=== PATIENT | female | born 1945 | race Caucasian/White ===

== ENCOUNTER 2018-08-11 19:01 | Inpatient (IN) | payer MEDICARE ==
[2018-08-11] MEDS ORDERED: NORMAL SALINE 1000 ML 500 ML IV ONE (19:25)
--- NOTE | 2018-08-11 19:29 | ER Document Report ---
ED General - General Stated Complaint: CONFUSION Time Seen by Provider: 08/11/18 19:10 Notes: Patient is a 72-year-old female that comes emergency department by EMS for chief complaint of altered mental status. EMS reports that patient was "missing " for 2 hours, she left her house and wondered to her children's home, her son called the ambulance. Patient was initially mildly hypotensive with blood pressures in the 90s systolic, this responded to a small fluid bolus and normalized. No fever, vomiting, injury reported. Patient has a history of "bone cancer in her back", hypothyroidism, GERD, hypertension. She is not on chemotherapy or radiation yet, she was supposed to start in over a week in [place] with Dr. Guerin. - Related Data Allergies/Adverse Reactions: No Known Allergies Allergy (Unverified 08/12/18 03:07) Past Medical History - General Information source: Patient - Social History Smoking Status: Never Smoker Drug Abuse: None Lives with: Family Family History: Reviewed & Not Pertinent - Past Medical History Cardiac Medical History: Reports: Hx Hypertension Endocrine Medical History: Reports: Hx Hypothyroidism Malignancy Medical History: Reports: Hx Bone Cancer GI Medical History: Reports: Hx Gastroesophageal Reflux Disease - Immunizations Hx Diphtheria, Pertussis, Tetanus Vaccination: Yes Review of Systems - Review of Systems Constitutional: See HPI EENT: No symptoms reported Cardiovascular: No symptoms reported Respiratory: No symptoms reported Gastrointestinal: No symptoms reported Genitourinary: No symptoms reported Female Genitourinary: No symptoms reported Musculoskeletal: No symptoms reported Skin: No symptoms reported Hematologic/Lymphatic: No symptoms reported Neurological/Psychological: See HPI Physical Exam - Vital signs Vitals: Pulse Resp BP Pulse Ox 103 H 22 H 122/75 95 08/11/18 22:54 08/11/18 22:54 08/11/18 22:54 08/11/18 22:54 - Notes Notes: GENERAL: Alert, responsive, no distress. HEAD: Normocephalic, atraumatic. EYES: Pupils equal, round, and reactive to light. Extraocular movements intact. ENT: Oral mucosa moist, tongue midline. NECK: Full range of motion. Supple. Trachea midline. LUNGS: Clear to auscultation bilaterally, no wheezes, rales, or rhonchi. No respiratory distress. HEART: Regular rate and rhythm. No murmur ABDOMEN: Soft, non-tender. Non-distended. Bowel sounds present in all 4 quadrants. EXTREMITIES: Moves all 4 extremities spontaneously. No edema, normal radial and dorsalis pedis pulses bilaterally. No cyanosis. BACK: no cervical, thoracic, lumbar midline tenderness. No saddle anesthesia, normal distal neurovascular exam. NEUROLOGICAL: Alert, responsive, not oriented to place or time. Cranial nerves II through XII generally intact. PSYCH: Occasionally irritable. SKIN: Warm, dry, normal turgor. No rashes or lesions noted. Course - Re-evaluation Re-evalutation: Patient follows all directions and cooperates with a normal neurological exam except she is not oriented to place and events. She is able to tell me her name , and identify her . She is unable to tell me the year or the president. She was recently started on dexamethasone within the past week for poor appetite, she is on OxyContin 10 mg twice a day and Percocet every 6 hours as needed for pain, states he does not know she is taking this or over- taking this. Has been actually is very difficult to obtain clear history from, he is confused about details and unable to give me any specifics about the patient, he thinks that she has been confused over the past few days but is not sure. I spoke with the patient's son. He states that since yesterday his mother has been acting bizarre and making bizarre statements, she has been very confused, he states this is completely abnormal for her she is normally completely alert and oriented with no history of dementia. He does confirm that she was recently started on dexamethasone and pain medication although he does not think that she was taking her pain medication. He also states that he actually found her inside of her coming over to his house, he found her walking barefoot in the middle of the road in her nightgown. She has never had bizarre behavior like this in the past. 08/11/18 23:20 There has been a large delay and CAT scan and chest x-ray because [employer] system went down. Still pending reports. Reports obtained, chest x-ray showing 5 x 4 cm mass in the right hilum worrisome for tumor, CAT scan of the head showing no acute findings, does show mass in the sella and suprasellar cistern which is thought to be possible pituitary adenoma or craniopharyngioma. There is no edema, there is no brain mass causing shift, unlikely the cause of her altered mental status. Discussed with Dr. Sanford. 08/12/18 I do suspect that patient's altered mental status is secondary to medications although this is not certain. I did discuss with him potential admission before he left. Will discuss with Dr. Gold, internal medicine. Discussed with Dr. Gold, patient will be admitted to medical floor full admission. - Vital Signs Vital signs: Temp Pulse Resp BP Pulse Ox 102 H 31 H 111/64 92 08/11/18 23:30 08/12/18 03:31 08/12/18 03:31 08/12/18 03:31 - Laboratory Result Diagrams: 08/11/18 20:11 08/11/18 20:11 Laboratory results interpreted by me: 08/11/18 08/11/18 08/11/18 20:11 20:11 20:11 RDW 16.1 H Sodium 136.3 L Total Bilirubin 1.4 H Direct Bilirubin 0.5 H Free T4 0.69 L Free T3 pg/mL Salicylates < 1.0 L Acetaminophen < 10 L 08/11/18 20:11 RDW Sodium Total Bilirubin Direct Bilirubin Free T4 Free T3 pg/mL 2.10 L Salicylates Acetaminophen Discharge - Discharge Clinical Impression: Altered mental status Qualifiers: Altered mental status type: unspecified Qualified Code(s): R41.82 - Altered mental status, unspecified Condition: Stable Disposition: ADMITTED INPATIENT Admitting Provider: Hospitalist Unit Admitted: Medical Floor
[2018-08-11 20:26] LABS: ABSOLUTE BASOPHILS # (AUTO) 0.1 10^3/uL (0.0-0.2); ABSOLUTE EOSINOPHILS # (AUTO) 0.1 10^3/uL (0.0-0.6); ABSOLUTE LYMPHOCYTES (AUTO) 1.5 10^3/uL (0.5-4.7); ABSOLUTE MONOCYTES (AUTO) 0.7 10^3/uL (0.1-1.4); ABSOLUTE NEUT (AUTO) 7.5 10^3/uL (1.7-8.2); BASOPHILS % (AUTO) 0.6 % (0-2); EOSINOPHILS % (AUTO) 1.1 % (0-6); HEMATOCRIT 39.7 % (36.0-47.0); HEMOGLOBIN 13.7 g/dL (12.0-15.5); LYMPHOCYTES % (AUTO) 14.7 % (13-45); MEAN CORPUSCULAR HEMOGLOBIN 30.4 pg (27.0-33.4); MEAN CORPUSCULAR HGB CONC 34.4 g/dL (32.0-36.0); MEAN CORPUSCULAR VOLUME 88 fl (80-97); MONOCYTES % (AUTO) 7.4 % (3-13); PLATELET COUNT 257 10^3/uL (150-450); RED CELL DISTRIBUTION WIDTH 16.1 % (11.5-14.0); SEGMENTED NEUTROPHILS % (AUTO) 76.2 % (42-78); TOTAL CELLS COUNTED % (AUTO) 100 %; WHITE BLOOD COUNT 9.9 10^3/uL (4.0-10.5)
[2018-08-11 20:43] LABS: ALANINE AMINOTRANSFERASE 18 U/L (9-52); ALBUMIN 3.6 g/dL (3.5-5.0); ALKALINE PHOSPHATASE 68 U/L (38-126); ANION GAP 9 (5-19); ASPARTATE AMINO TRANSFERASE 34 U/L (14-36); BILIRUBIN,DIRECT 0.5 mg/dL (0.0-0.4); BILIRUBIN,TOTAL 1.4 mg/dL (0.2-1.3); BLOOD UREA NITROGEN 9 mg/dL (7-20); CARBON DIOXIDE 28 mmol/L (22-30); CHLORIDE 99 mmol/L (98-107); GLUCOSE 89 mg/dL (75-110); POTASSIUM 3.9 mmol/L (3.6-5.0); SODIUM 136.3 mmol/L (137-145); TOTAL PROTEIN 6.6 g/dL (6.3-8.2)
[2018-08-11 20:46] LABS: ACETAMINOPHEN < 10 ug/mL (10-30); ALCOHOL < 10 mg/dL (NONE DETECTED); SALICYLATE < 1.0 mg/dL (2.0-20.0)
[2018-08-11 20:59] LABS: FREE T4 (FREE THYROXINE) 0.69 ng/dL (0.78-2.19)
[2018-08-11 21:47] LABS: THYROID STIMULATING HORMONE 1.33 uIU/mL (0.47-4.68)
[2018-08-11 22:10] LABS: APPEARANCE,URINE CLEAR; BILIRUBIN,URINE NEGATIVE (NEGATIVE); COLOR,URINE YELLOW; GLUCOSE, URINE NEGATIVE (NEGATIVE); KETONES,URINE NEGATIVE (NEGATIVE); NITRITE,URINE NEGATIVE (NEGATIVE); PROTEIN,URINE NEGATIVE (NEGATIVE); URINE SPECIFIC GRAVITY 1.003; UROBILINOGEN,URINE NEGATIVE mg/dL (<2.0)
[2018-08-11 22:11] LABS: LEUKOCYTE ESTERASE,URINE NEGATIVE (NEGATIVE)
[2018-08-11 23:01] LABS: URINE AMPHETAMINES SCREEN NEGATIVE; URINE BARBITURATES SCREEN NEGATIVE; URINE BENZODIAZEPINES SCREEN NEGATIVE; URINE COCAINE SCREEN NEGATIVE; URINE MARIJUANA (THC) SCREEN NEGATIVE; URINE METHADONE SCREEN NEGATIVE; URINE PHENCYCLIDINE SCREEN NEGATIVE
[2018-08-12] MEDS ORDERED: MAG HYDROX/AL HYDROX/SIMETH SUSP 30 ML UDCUP PO PRN (02:46)
[2018-08-12] MEDS ORDERED: IPRATROPIUM/ALBUTEROL 0.5-2.5 MG/3 ML AMPUL NEB PRN (02:46)
[2018-08-12] MEDS ORDERED: MAGNESIUM HYDROXIDE SUSP 30 ML UDCUP PO PRN (02:46)
--- NOTE | 2018-08-12 05:18 | EKG REPORT ---
SEVERITY:- ABNORMAL ECG - SINUS TACHYCARDIA NONSPECIFIC REPOL ABNORMALITY, DIFFUSE LEADS : Confirmed by: Christa Manrique 12-Aug-2018 05:17:34
--- NOTE | 2018-08-12 06:52 | PDOC H&P ---
History of Present Illness Admission Date/PCP: 08/12/18 02:54 Patient complains of: Altered mental status History of Present Illness: EBENEZER HEBERT is a 72 year old female with unclear past medical history obtained by patient who is encephalopathic. 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 She presents via EMS after finds her confused, EMS reports hypo-tension, in the emergency room she has an unremarkable workup without metabolic derangement or significant toxicology. Patient recently started on dexamethasone and narcotics. She is otherwise unable to provide specific history. She is in no acute distress Past Medical History Cardiac Medical History: Reports: Hypertension Endocrine Medical History: Reports: Hypothyroidism Malignancy Medical History: Reports: Bone Cancer GI Medical History: Reports: Gastroesophageal Reflux Disease Past Surgical History Past Surgical History: Reports: None Social History Information Source: Patient Lives with: Family Smoking Status: Never Smoker Frequency of Alcohol Use: None Drugs: None - Advance Directive Resuscitation Status: Full Code Family History Family History: Other - Unobtainable Parental Family History Reviewed: No - Unobtainable Children Family History Reviewed: No - Unobtainable Sibling(s) Family History Reviewed.: No - Unobtainable Medication/Allergy Home Medications: Dexamethasone 0.5 mg PO 08/12/18 Levothyroxine Sodium [Synthroid 50 Mcg Tablet] 50 mcg PO DAILY 08/12/18 Omeprazole 20 mg PO 08/12/18 Oxycodone HCl 10 mg PO 08/12/18 Valsartan 40 mg PO 08/12/18 Allergies/Adverse Reactions: No Known Allergies Allergy (Unverified 08/12/18 03:07) Review of Systems ROS unobtainable: Due to mental status Physical Exam Vital Signs: Temp Pulse Resp BP Pulse Ox 102 H 31 H 111/64 92 08/11/18 23:30 08/12/18 03:31 08/12/18 03:31 08/12/18 03:31 Intake & Output 08/10/18 08/11/18 08/12/18 11:59 11:59 11:59 Weight 81.6 kg General appearance: PRESENT: no acute distress, cooperative, disheveled, mild distress. ABSENT: severe distress Head exam: PRESENT: atraumatic, normocephalic Eye exam: PRESENT: conjunctiva pink, EOMI, PERRLA. ABSENT: scleral icterus Ear exam: PRESENT: normal external ear exam Mouth exam: PRESENT: moist, tongue midline Neck exam: ABSENT: carotid bruit, JVD, lymphadenopathy, thyromegaly Respiratory exam: PRESENT: clear to auscultation kain. ABSENT: rales, rhonchi, wheezes Cardiovascular exam: PRESENT: RRR. ABSENT: diastolic murmur, rubs, systolic murmur Pulses: PRESENT: normal dorsalis pedis pul Vascular exam: PRESENT: normal capillary refill GI/Abdominal exam: PRESENT: normal bowel sounds, soft. ABSENT: distended, guarding, mass, organolmegaly, rebound, tenderness Rectal exam: PRESENT: deferred Extremities exam: PRESENT: full ROM. ABSENT: calf tenderness, clubbing, pedal edema Neurological exam: PRESENT: alert, altered, awake, oriented to person, reflexes normal, CN II-XII grossly intact. ABSENT: oriented to time, oriented to situation Psychiatric exam: PRESENT: agitated, anxious, unusual affect Skin exam: PRESENT: dry, intact, warm. ABSENT: cyanosis, rash Assessment & Plan - Diagnosis (1) Acute encephalopathy Is this a current diagnosis for this admission?: Yes Plan: Possibly steroid psychosis, supportive care, obtain medication reconciliation. (2) History of bone cancer Is this a current diagnosis for this admission?: Yes Plan: Obtain CT head imaging results. - Time Time Spent: 50 to 70 Minutes - Inpatient Certification Medical Necessity: Need Close Monitoring Due to Risk of Patient Decompensation
[2018-08-12] MEDS: HEPARIN SOD (PORCINE) 5,000 UNIT/ML 1 ML SYRINGE SUBCUT SCH ×3 (07:13→21:39)
--- NOTE | 2018-08-12 07:46 | RADIOLOGY REPORT (SQ) ---
EXAM DESCRIPTION: CT HEAD WITHOUT COMPLETED DATE/TIME: 08/11/2018 7:26 pm REASON FOR STUDY: AMS COMPARISON: None. TECHNIQUE: Axial images acquired through the brain without intravenous contrast. Images reviewed wi th bone, brain and subdural windows. Additional sagittal and coronal reconstructions were generated. Images stored on PACS. All CT scanners at this facility use dose modulation, iterative reconstruction, and/or weight based d osing when appropriate to reduce radiation dose to as low as reasonably achievable (ALARA). [facility]: Dose Right [facility]: CareDose [facility]: Dose Right [facility]: Teradose 4D [facility]: AdReady RADIATION DOSE: 53 mGy. LIMITATIONS: None. FINDINGS: There is a 3 cm craniocaudad by 2 cm AP x 2 cm transverse mass filling the sella and supra sellar cistern, abutting the undersurface of the optic chiasm, either a pituitary adenoma or cranioph aryngioma. This is best demonstrated on sagittal reconstruction image 23 VENTRICLES: Normal size and contour. CEREBRUM: No masses. No hemorrhage. No midline shift. No evidence for acute infarction. Normal gra y/white matter differentiation. No areas of low density in the white matter. CEREBELLUM: No masses. No hemorrhage. No alteration of density. No evidence for acute infarction. EXTRAAXIAL SPACES: No fluid collections. No masses. ORBITS AND GLOBE: No intra- or extraconal masses. Normal contour of globe without masses. CALVARIUM: No fracture. Benign calvarium hemangioma right posterior frontal region axial image 28 PARANASAL SINUSES: No fluid or mucosal thickening. SOFT TISSUES: No mass or hematoma. OTHER: No other significant finding. IMPRESSION: No acute findings. Mass in the sella and suprasellar cistern likely the pituitary at ad enoma or craniopharyngioma EVIDENCE OF ACUTE STROKE: NO. COMMENT: Quality ID # [id number]: Final reports with documentation of one or more dose reduction techniques (e.g., Automated exposure control, adjustment of the mA and/or kV according to patient size, use of iterative reconstruction technique) TECHNICAL DOCUMENTATION: JOB ID: [id number] [employer]- All Rights Reserved Reading location - IP/workstation name: [email or web address]
--- NOTE | 2018-08-12 07:46 | RADIOLOGY REPORT (SQ) ---
EXAM DESCRIPTION: CHEST SINGLE VIEW COMPLETED DATE/TIME: 08/11/2018 7:26 pm REASON FOR STUDY: AMS COMPARISON: None. EXAM PARAMETERS: NUMBER OF VIEWS: One view. TECHNIQUE: Single frontal radiographic view of the chest acquired. RADIATION DOSE: NA LIMITATIONS: None. FINDINGS: LUNGS AND PLEURA: 5 x 4 cm mass in the right middle lobe/lower hilum worrisome for primary tumor. Lungs are hyperinflated and hyperlucent otherwise from obstructive disease. No pleural effusion. No pneumothorax. MEDIASTINUM AND HILAR STRUCTURES: No masses. Contour normal. HEART AND VASCULAR STRUCTURES: Heart normal in size. Normal vasculature. BONES: No acute findings. HARDWARE: None in the chest. OTHER: No other significant finding. IMPRESSION: 5 x 4 cm mass in the right lower hilum worrisome for primary tumor TECHNICAL DOCUMENTATION: JOB ID: [id number] [employer]- All Rights Reserved Reading location - IP/workstation name: [email or web address]
[2018-08-12] MEDS: OXYCODONE-ACETAMINOPHEN 5-325 MG TABLET PO PRN ×2 (12:12→22:40)
[2018-08-13] MEDS: HEPARIN SOD (PORCINE) 5,000 UNIT/ML 1 ML SYRINGE SUBCUT SCH ×3 (05:05→21:44)
[2018-08-13] MEDS: OXYCODONE-ACETAMINOPHEN 5-325 MG TABLET PO PRN ×3 (05:06→18:07)
[2018-08-13 05:37] LABS: ABSOLUTE EOSINOPHILS # (AUTO) 0.2 10^3/uL (0.0-0.6); ABSOLUTE LYMPHOCYTES (AUTO) 1.1 10^3/uL (0.5-4.7); ABSOLUTE MONOCYTES (AUTO) 0.4 10^3/uL (0.1-1.4); ABSOLUTE NEUT (AUTO) 4.3 10^3/uL (1.7-8.2); BASOPHILS % (AUTO) 0.7 % (0-2); EOSINOPHILS % (AUTO) 2.6 % (0-6); HEMATOCRIT 33.9 % (36.0-47.0); HEMOGLOBIN 11.9 g/dL (12.0-15.5); LYMPHOCYTES % (AUTO) 18.9 % (13-45); MEAN CORPUSCULAR HEMOGLOBIN 30.5 pg (27.0-33.4); MEAN CORPUSCULAR HGB CONC 35.3 g/dL (32.0-36.0); MEAN CORPUSCULAR VOLUME 86 fl (80-97); MONOCYTES % (AUTO) 7.1 % (3-13); PLATELET COUNT 224 10^3/uL (150-450); RED BLOOD COUNT 3.92 10^6/uL (3.72-5.28); RED CELL DISTRIBUTION WIDTH 16.2 % (11.5-14.0); SEGMENTED NEUTROPHILS % (AUTO) 70.7 % (42-78); TOTAL CELLS COUNTED % (AUTO) 100 %
[2018-08-13 05:58] LABS: ANION GAP 10 (5-19); BLOOD UREA NITROGEN 7 mg/dL (7-20); CALCIUM 9.3 mg/dL (8.4-10.2); CARBON DIOXIDE 25 mmol/L (22-30); CHLORIDE 98 mmol/L (98-107); GLUCOSE 84 mg/dL (75-110); POTASSIUM 4.3 mmol/L (3.6-5.0); SODIUM 132.9 mmol/L (137-145)
--- NOTE | 2018-08-13 16:00 | PDOC PROGRESS REPORT ---
Subjective Progress Note for:: 08/13/18 Subjective:: EBENEZER HEBERT is a 72 year old female who presents via EMS after her found her acutely confused at home, EMS reported hypotension during transport, in the emergency room she had an unremarkable evaluation without metabolic derangement or significant toxicology. She was recently started on dexamethasone and narcotics. She is unable to provide medical history due to her encephalopathy. 08/13/18: Better today states she is feeling quite a little bit better. Nursing staff noticed that she was a little confused about date and time earlier in the day seems to be more oriented about that also at this point. She is speaking in showing good memory in both short and long-term spheres on exam today. She knows that she was somewhat confused yesterday and feels that she is essentially resolved today. She is asking when she may be going home and I have discussed with her going home tomorrow if her progress holds. Reason For Visit: ENCEPHALOPATHY, BONE CANCER WITH METS Physical Exam Vital Signs: Temp Pulse Resp BP Pulse Ox 98.3 F 87 16 96/58 L 93 08/13/18 12:00 08/13/18 13:49 08/13/18 13:49 08/13/18 12:00 08/13/18 13:49 Intake & Output 08/12/18 08/13/18 08/14/18 06:59 06:59 06:59 Intake Total 1118 237 Balance 1118 237 Weight 81.6 kg 79.7 kg General appearance: PRESENT: no acute distress, cooperative Head exam: PRESENT: atraumatic, normocephalic Eye exam: PRESENT: conjunctiva pink. ABSENT: conjunctival injection Ear exam: PRESENT: normal external ear exam. ABSENT: bleeding, drainage Mouth exam: PRESENT: neck supple, tongue midline Neck exam: ABSENT: thyromegaly, tracheal deviation Respiratory exam: PRESENT: clear to auscultation kain, symmetrical, unlabored Cardiovascular exam: PRESENT: RRR. ABSENT: clicks, diastolic murmur, gallop, rubs, systolic murmur Vascular exam: PRESENT: normal capillary refill. ABSENT: pallor GI/Abdominal exam: PRESENT: normal bowel sounds, soft Rectal exam: PRESENT: deferred Extremities exam: PRESENT: full ROM. ABSENT: joint swelling Musculoskeletal exam: ABSENT: deformity, dislocation Neurological exam: PRESENT: oriented to person, oriented to place, oriented to time, oriented to situation, CN II-XII grossly intact. ABSENT: motor sensory deficit Psychiatric exam: PRESENT: appropriate affect, normal mood Skin exam: ABSENT: jaundice, rash, urticaria Results Laboratory Results: 08/13/18 04:40 08/13/18 04:40 08/13/18 08/13/18 04:40 04:40 WBC 6.0 RBC 3.92 Hgb 11.9 L Hct 33.9 L MCV 86 MCH 30.5 MCHC 35.3 RDW 16.2 H Plt Count 224 Seg Neutrophils % 70.7 Lymphocytes % 18.9 Monocytes % 7.1 Eosinophils % 2.6 Basophils % 0.7 Absolute Neutrophils 4.3 Absolute Lymphocytes 1.1 Absolute Monocytes 0.4 Absolute Eosinophils 0.2 Absolute Basophils 0.0 Sodium 132.9 L Potassium 4.3 Chloride 98 Carbon Dioxide 25 Anion Gap 10 BUN 7 Creatinine 0.64 Est GFR ( Amer) > 60 Est GFR (Non-Af Amer) > 60 Glucose 84 Calcium 9.3 Impressions: Head CT 08/11/18 19:24 IMPRESSION: No acute findings. Mass in the sella and suprasellar cistern likely the pituitary at adenoma or craniopharyngioma EVIDENCE OF ACUTE STROKE: NO. Chest X-Ray 08/11/18 19:25 IMPRESSION: 5 x 4 cm mass in the right lower hilum worrisome for primary tumor Assessment & Plan - Diagnosis (1) Acute encephalopathy Is this a current diagnosis for this admission?: Yes Plan: Symptoms of encephalopathy of essentially resolved this morning. Will observe for 24 hours of discharge tomorrow unless there is a setback in her status. (2) History of bone cancer Is this a current diagnosis for this admission?: Yes Plan: Patient will be continued on her prehospital medications as appropriate during her hospitalization and posthospitalization. - Time Time Spent with patient: 25-34 minutes Medications reviewed and adjusted accordingly: Yes Anticipated discharge: Home Within: within 24 hours
[2018-08-14] MEDS: OXYCODONE-ACETAMINOPHEN 5-325 MG TABLET PO PRN (02:46)
[2018-08-14] MEDS: HEPARIN SOD (PORCINE) 5,000 UNIT/ML 1 ML SYRINGE SUBCUT SCH ×2 (05:17→16:41)
[2018-08-14 05:53] LABS: ANION GAP 9 (5-19); BLOOD UREA NITROGEN 5 mg/dL (7-20); CALCIUM 9.5 mg/dL (8.4-10.2); CARBON DIOXIDE 28 mmol/L (22-30); CHLORIDE 98 mmol/L (98-107); GLUCOSE 81 mg/dL (75-110); POTASSIUM 4.1 mmol/L (3.6-5.0); SODIUM 134.8 mmol/L (137-145)
[2018-08-14] MEDS ORDERED: LORAZEPAM INJ 2 MG/1 ML VIAL IV ONE (14:25)
[2018-08-14] MEDS ORDERED: HALOPERIDOL LACTATE INJ 5 MG/1 ML VIAL IV ONE (14:25)
[2018-08-14] MEDS ORDERED: DEXAMETHASONE SOD PHOS INJ 10 MG/1 ML VIAL IV ONE (14:37)
[2018-08-14] MEDS ORDERED: HALOPERIDOL LACTATE INJ 5 MG/1 ML VIAL IV PRN (14:48)
[2018-08-14] MEDS ORDERED: LORAZEPAM INJ 2 MG/1 ML VIAL IV PRN (14:48)
--- NOTE | 2018-08-14 20:07 | PDOC PROGRESS REPORT ---
Subjective Progress Note for:: 08/14/18 Subjective:: EBENEZER HEBERT is a 72 year old female who presents via EMS after her found her acutely confused at home, EMS reported hypotension during transport, in the emergency room she had an unremarkable evaluation without metabolic derangement or significant toxicology. She was recently started on dexamethasone and narcotics by her outpatient doctor. The patient was seen this afternoon on rounds, brother and [id number] are at the bedside. The patient is extremely agitated and stating that she wants to go home. The patient is having difficulty forming cohesive sentences and thoroughly expressing her wants and needs. At one point, the patient stood up out of bed and, in a very physically aggressive, manner began approaching this provider. Security was called to the bedside. Family expressed concerns about their ability to care for the patient at home. They expressed interest in having the patient placed in a fdc. Will discuss with discharge planning. It is possible that the patient's agitation as a result of metastasis of her cancer. Plan for MRI brain. Additionally, patient has not been to see oncologist for her bone and lung cancer. Consulted oncology, Dr. Du recommends CT guided biopsy of lung mass. Reason For Visit: ENCEPHALOPATHY, BONE CANCER WITH METS Physical Exam Vital Signs: Temp Pulse Resp BP Pulse Ox 98.3 F 95 14 83/56 L 91 L 08/14/18 16:00 08/14/18 19:00 08/14/18 16:00 08/14/18 16:00 08/14/18 16:00 Intake & Output 08/13/18 08/14/18 08/15/18 06:59 06:59 06:59 Intake Total 222 Balance 222 General appearance: PRESENT: no acute distress, well-developed, well-nourished Head exam: PRESENT: atraumatic, normocephalic Eye exam: PRESENT: conjunctiva pink, EOMI, PERRLA. ABSENT: scleral icterus Ear exam: PRESENT: normal external ear exam Mouth exam: PRESENT: moist, tongue midline Neck exam: ABSENT: carotid bruit, JVD, lymphadenopathy, thyromegaly Respiratory exam: PRESENT: clear to auscultation kain, symmetrical, unlabored. ABSENT: rales, rhonchi, wheezes Cardiovascular exam: PRESENT: RRR Pulses: PRESENT: normal radial pulses, normal dorsalis pedis pul Vascular exam: PRESENT: normal capillary refill Rectal exam: PRESENT: deferred Extremities exam: PRESENT: full ROM. ABSENT: calf tenderness, clubbing, pedal edema Musculoskeletal exam: PRESENT: ambulatory, full ROM Neurological exam: PRESENT: alert, awake, oriented to person, oriented to place , oriented to time, CN II-XII grossly intact. ABSENT: oriented to situation, motor sensory deficit Psychiatric exam: PRESENT: agitated, unusual affect. ABSENT: appropriate affect , normal mood Skin exam: PRESENT: dry, intact, warm. ABSENT: cyanosis, rash Results Impressions: Head CT 08/11/18 19:24 IMPRESSION: No acute findings. Mass in the sella and suprasellar cistern likely the pituitary at adenoma or craniopharyngioma EVIDENCE OF ACUTE STROKE: NO. Chest X-Ray 08/11/18 19:25 IMPRESSION: 5 x 4 cm mass in the right lower hilum worrisome for primary tumor Status: Imported from PACS Assessment & Plan - Diagnosis (1) Acute encephalopathy Is this a current diagnosis for this admission?: Yes Plan: Encephalopathy significantly worse this morning. Possibly related to metastasis of bone and lung cancer Plan for MRI brain Oncology consulted, appreciate their recommendations Security at bedside for assessment Requiring IV haldol and ativan for temporary sedation Plan for scheduled Seroquel and as needed Zyprexa for agitation Family requesting assistance with SNF placement. Discharge planning aware. (2) History of bone cancer Is this a current diagnosis for this admission?: Yes Plan: Lung cancer with metastases to the bone Patient has not been seen by oncologist yet, planned for appointment next week in [place] Oncology consulted - Dr. Du planning for CT-guided biopsy of the lung mass - Time Time Spent with patient: 15-24 minutes Medications reviewed and adjusted accordingly: Yes Anticipated discharge: SNF - Inpatient Certification Based on my medical assessment, after consideration of the patient's comorbidities, presenting symptoms, or acuity I expect that the services needed warrant INPATIENT care.: Yes I certify that my determination is in accordance with my understanding of Medicare's requirements for reasonable and necessary INPATIENT services [42 CFR 412.3e].: Yes Medical Necessity: Risk of Complication if Not Cared For in Hospital - Plan Summary Plan Summary: PRN Zyprexa and scheduled Seroquel. MRI brain today. CT-guided biopsy of lung tomorrow.
[2018-08-14] MEDS: DEXAMETHASONE 4 MG TABLET PO SCH (21:36)
[2018-08-14] MEDS: QUETIAPINE FUMARATE 25 MG TABLET PO SCH (21:37)
--- NOTE | 2018-08-14 23:31 | CONSULTATION REPORT E ---
Consultation Report NAME: EBENEZER HEBERT : 1945 AGE: 72Y DATE: 08/14/2018 ROOM: 528 A TO: LAURA ERAZO M.D. FROM: PAPI VICTORIA M.D. Requesting Physician REASON FOR CONSULTATION: Consultation request lung mass, altered mental status. HISTORY OF PRESENT ILLNESS: The patient is a 72-year-old woman who was admitted into the hospital on 08/12/2018, the family tells me that she has been sick for awhile, starting in March she started feeling very tired with generalized body pains. She was seen by her primary care physician and initially thought to have a thyroid problem. She was started on medication but her symptoms did not improve. She subsequently had a chest x-ray and an MRI of the back done that showed a suspicious lesion in the spine. [facility], however, she was not able to keep that appointment. She presented in the emergency room and was admitted with altered mental status. She had been missing for about 2 hours from her house and wandered from her children's home. Her son called the ambulance and she was brought in. Initially she was said to be hypotensive. Since hospitalization she had a chest x-ray done 08/11/2018; it shows a 5 x 4 mass in the right lower hilum worrisome for primary lung cancer. The bones on the chest x-ray showed no acute finding. She had a CT scan of the head without contrast 08/11/2018; there was no acute finding, mass in the sellar and suprasellar system, likely pituitary adenoma or craniopharyngioma. She was noted to be confused today and aggressive. She was given Haldol and she is presently sleeping, arousable, but unable to answer questions. Most of the history I obtained from the patient's chart and also from the family member that was present at her bedside. PHYSICAL EXAMINATION: GENERAL: On exam, she is an elderly woman. She is very drowsy, arousable, but unable to answer questions. NECK: She has no palpable supraclavicular adenopathy. ABDOMEN: Soft. EXTREMITIES: Lower extremities, no edema. LABORATORY DATA: From 08/13/2018; white count is 6.0, hemoglobin is 11.9, platelet count is 224. Sodium 134, potassium 4.1, BUN 9, creatinine 0.62. Her serum calcium was 9.5, total bilirubin 1.4. IMAGING STUDIES: Radiology report; chest x-ray and CT scan of the head as stated above. Her records from [facility] shows that she had a chest x-ray done 07/25/2018; there was no acute abnormality reported. She had a CT scan of the abdomen with contrast 04/14/2018; it had shown an indeterminant nodule in the liver. She had a CT scan of the abdomen with and without contrast done 06/2018; it shows bilateral adrenal nodules, new from 2012 concerning for malignancy, some benign hepatic *------* cyst described. She had an MRI of the lumbar spine done 07/16/2018; there are multiple T2 hyperintense, T1 hypointense lesions within the imaged thoracolumbar spine and sacrum suspicious for malignancy or metastatic disease. The lesions are most prominent T11, T12, L2, L4 vertebral body and the S1. No pathology fracture evident. The conus is normal size. Bilateral adrenal nodules not well evaluated. Possible right greater than left extrarenal pelvis cyst with some scarring. IMPRESSION AND PLAN: The patient is a 72-year-old woman, who unfortunately presents with altered mental status and generalized body aches dating back to 03/2018. I explained to the family members that for now all that we have is the mass in the lungs and the bilateral adrenal masses. The CT scan of the head without contrast was not diagnostic of metastatic disease to the brain. I would suggest obtaining an MRI to further rule out brain metastasis, which would explain her altered mental status. I will also request a CT guided biopsy of the most accessible lesion. I will be able to discuss further with them after the biopsy. That will make clear of the overall prognosis and treatment options that might be available for her. I will be glad to see her back after the diagnostic workup has been completed, if she otherwise remains clinically stable. I thank you for this consultation and allowing me to be part of her care. DICTATING PHYSICIAN: LAURA ERAZO M.D. [id number] PHY#: [id number] ID: [id number] JOB#: [id number] ACCT: [id number] cc:LAURA ERAZO M.D. >
[2018-08-15] MEDS: ACETAMINOPHEN 325 MG TABLET PO PRN ×2 (02:39→21:12)
[2018-08-15 04:56] LABS: ABSOLUTE LYMPHOCYTES (AUTO) 0.3 10^3/uL (0.5-4.7); ABSOLUTE MONOCYTES (AUTO) 0.1 10^3/uL (0.1-1.4); BASOPHILS % (AUTO) 0.2 % (0-2); EOSINOPHILS % (AUTO) 0.2 % (0-6); HEMATOCRIT 34.7 % (36.0-47.0); LYMPHOCYTES % (AUTO) 5.3 % (13-45); MEAN CORPUSCULAR HEMOGLOBIN 30.4 pg (27.0-33.4); MEAN CORPUSCULAR HGB CONC 34.7 g/dL (32.0-36.0); MEAN CORPUSCULAR VOLUME 88 fl (80-97); MONOCYTES % (AUTO) 1.7 % (3-13); PLATELET COUNT 245 10^3/uL (150-450); RED BLOOD COUNT 3.96 10^6/uL (3.72-5.28); SEGMENTED NEUTROPHILS % (AUTO) 92.6 % (42-78); TOTAL CELLS COUNTED % (AUTO) 100 %; WHITE BLOOD COUNT 6.5 10^3/uL (4.0-10.5)
[2018-08-15 05:08] LABS: ALANINE AMINOTRANSFERASE 19 U/L (9-52); ALBUMIN 3.7 g/dL (3.5-5.0); ALKALINE PHOSPHATASE 66 U/L (38-126); ANION GAP 11 (5-19); ASPARTATE AMINO TRANSFERASE 33 U/L (14-36); BILIRUBIN,DIRECT 0.6 mg/dL (0.0-0.4); BILIRUBIN,TOTAL 0.7 mg/dL (0.2-1.3); BLOOD UREA NITROGEN 7 mg/dL (7-20); CALCIUM 9.4 mg/dL (8.4-10.2); CARBON DIOXIDE 25 mmol/L (22-30); CHLORIDE 101 mmol/L (98-107); GLUCOSE 177 mg/dL (75-110); POTASSIUM 4.5 mmol/L (3.6-5.0); SODIUM 136.7 mmol/L (137-145); TOTAL PROTEIN 6.9 g/dL (6.3-8.2)
[2018-08-15] MEDS: DEXAMETHASONE 4 MG TABLET PO SCH ×3 (05:38→21:12)
[2018-08-15] MEDS ORDERED: OLANZAPINE INJ/PF 10 MG SDV IM PRN (09:38)
[2018-08-15] MEDS ORDERED: LORAZEPAM INJ 2 MG/1 ML VIAL IV ONE (10:30)
[2018-08-15 12:01] LABS: INTERNATIONAL RATION (INR) 0.96; PROTHROMBIN TIME 13.3 SEC (11.4-15.4)
--- NOTE | 2018-08-15 12:44 | RADIOLOGY REPORT (SQ) ---
EXAM DESCRIPTION: CT CHEST WITH; CT ABD/PELVIS WITH IV ONLY COMPLETED DATE/TIME: 08/15/2018 12:15 pm REASON FOR STUDY: eval. pulmonary mass D46.4 REFRACTORY ANEMIA, UNSPECIFIED COMPARISON: Chest film 08/11/2018 CONTRAST TYPE AND DOSE: contrast/concentration: Isovue 350.00 mg/ml; Total Contrast Delivered: 86.0 ml; Total Saline Delivered: 69.0 ml RENAL FUNCTION: Creatinine 0.7 TECHNIQUE: CT scan of the chest performed using helical scanning technique with dynamic intravenous contrast injection. Images reviewed with lung, soft tissue and bone windows. Reconstructed coronal a nd sagittal MPR images reviewed. All images stored on PACS. CT scan of the abdomen and pelvis performed with intravenous and without oral contrastusing helical s jay technique with dynamic intravenous contrast injection. Images reviewed with lung, soft tissu e and bone windows. Reconstructed coronal and sagittal MPR images reviewed. Delayed images for eval uation of the urinary system also acquired and evaluated. All images stored on PACS. All CT scanners at this facility use dose modulation, iterative reconstruction, and/or weight based d osing when appropriate to reduce radiation dose to as low as reasonably achievable (ALARA). [facility]: Dose Right [facility]: CareDose [facility]: Dose Right [facility]: Teradose 4D [facility]: Smart Technologies RADIATION DOSE: CT Rad equipment meets quality standard of care and radiation dose reduction techniq ues were employed. CTDIvol: 10.9 - 15.6 mGy. DLP: 1998 mGy-cm. . LIMITATIONS: None. FINDINGS: CHEST: LUNGS AND PLEURA: Obstructive lung disease is present with enlarged airspaces in the upper lobes and superior segment lower lobes bilaterally. A right lower hilar mass obstructs the right lower lobe segmental bronchi and significantly narrows t he right middle lobe bronchus and distal bronchus intermedius. There is mild volume loss in the righ t lower lobe with consolidation in the right posterior costophrenic sulcus and mucous plugging in the right lower lobe airways. No pleural effusions. No pneumothorax. HILAR AND MEDIASTINAL STRUCTURES: On the right side, a lower hilar mass is present narrowing the righ t middle lobe bronchus and distal bronchus intermedius, and occluding the right lower lobe segmental bronchi. This measures 4.58 cm AP x 4 cm transverse x 3.7 cm craniocaudad. There is bulky mediastinal adenopathy as follows: 2.4 x 2 cm right peritracheal lymph node axial image 19 3.2 x 2.8 cm precarinal lymph node image 23 4.4 x 3.3 cm sub- carinal lymph node axial image 29 HEART AND VASCULAR STRUCTURES: No aneurysm or dissection. No central pulmonary emboli. No pericardi al effusion. HARDWARE: None. THYROID AND OTHER SOFT TISSUES: No masses. No adenopathy. BONES: T6 vertebra plana deformity with bony sclerosis, likely subacute or chronic OTHER: No other significant finding. ABDOMEN AND PELVIS: LIVER: Normal size. No masses. No dilated ducts. 1.8 cm septated cyst left lobe liver SPLEEN: Normal size. No focal lesions. PANCREAS: No masses. No significant calcifications. No adjacent inflammation or peripancreatic fluid collections. Pancreatic duct not dilated. GALLBLADDER: No identified stones by CT criteria. No inflammatory changes to suggest cholecystitis. ADRENAL GLANDS: Right side 2.5 x 2 cm adrenal mass. There is a 3.1 x 2 cm left adrenal mass RIGHT KIDNEY AND URETER: No solid masses. No significant calcification. No hydronephrosis or hydroure ter. LEFT KIDNEY AND URETER: No solid masses. No significant calcification. No hydronephrosis or hydrouret er. AORTA AND VESSELS: No aneurysm. No dissection. Renal arteries, SMA, celiac without stenosis. RETROPERITONEUM: No retroperitoneal adenopathy, hemorrhage or masses. BOWEL AND PERITONEAL CAVITY: No CT evidence of bowel obstruction, free intraperitoneal air or fluid. Colonic diverticulosis without CT signs of acute diverticulitis. Moderate constipation. APPENDIX: Normal. ABDOMINAL WALL: No masses. No hernias. PELVIS: No mass or free fluid. Normal bladder. Normal size female pelvic organs BONES: Subacute central inferior endplate compression of L4 with adjacent bony sclerosis. No overall L4 vertebral body loss of height OTHER: No other significant finding. IMPRESSION: Right hilar mass with malignant mediastinal adenopathy T6 and L4 subacute to chronic appearing compression deformities Bilateral adrenal masses TECHNICAL DOCUMENTATION: JOB ID: [id number] Quality ID # [id number]: Final reports with documentation of one or more dose reduction techniques (e.g., Au tomated exposure control, adjustment of the mA and/or kV according to patient size, use of iterative reconstruction technique) 2010 [employer] All Rights Reserved Reading location - IP/workstation name: [email or web address]
--- NOTE | 2018-08-15 13:28 | RADIOLOGY REPORT (SQ) ---
EXAM DESCRIPTION: MRI HEAD COMBO COMPLETED DATE/TIME: 08/15/2018 12:59 pm REASON FOR STUDY: eval for brain metastasis D46.4 REFRACTORY ANEMIA, UNSPECIFIED COMPARISON: CT brain 08/11/2018 TECHNIQUE: Multiplanar imaging includes noncontrasted T1, T2, FLAIR, diffusion with ADC map and post gadolinium contrast T1 sequences. Images stored on PACS. CONTRAST TYPE AND DOSE: 15 mL Dotarem. RENAL FUNCTION: GFR > 60. LIMITATIONS: Motion artifact throughout the study FINDINGS: PITUITARY FOSSA: There is motion artifact throughout the study. A dumbbell-shaped 3 cm cr aniocaudad by 2 cm transverse mass is present in the sella extending up into the suprasellar cistern, flattening the optic chiasm and hypothalamus. This either represents a pituitary adenoma, craniopha ryngioma, or sellar meningioma. CSF SPACES: Normal in size and contour. No hemorrhage. CEREBRUM: Sulci and gyri normal in size and contour. Normal white matter signal on FLAIR imaging. No evidence of hemorrhage, mass, or extraaxial fluid collection. No abnormal enhancement post contrast. POSTERIOR FOSSA: No signal alteration. No hemorrhage. No edema, masses, or mass effect. Internal marimar tory canals, cerebellopontine angles, mastoids normal. No enhancing lesions. No abnormal enhancement post contrast. DIFFUSION IMAGING: Negative for acute or subacute infarction. ORBITS: No masses. Globes normal. PARANASAL SINUSES: No fluid levels. Mucosa normal. OTHER: There is a benign calvarial hemangioma in the right frontal region with avid contrast enhancem ent on axial image 22 and coronal image 16 IMPRESSION: 3 x 2 cm sellar and suprasellar mass No brain parenchymal masses or enhancement worrisome for metastatic disease given the large right hil ar mass on CT chest today EVIDENCE OF ACUTE STROKE: NO. TECHNICAL DOCUMENTATION: JOB ID: [id number] [employer]- All Rights Reserved Reading location - IP/workstation name: [email or web address]
--- NOTE | 2018-08-15 20:31 | PDOC PROGRESS REPORT ---
<JOSE ZAMORANO Crys - Last Filed: 08/15/18 20:05> Subjective Progress Note for:: 08/15/18 Subjective:: EBENEZER HEBERT is a 72 year old female who presents via EMS after her found her acutely confused at home, EMS reported hypotension during transport, in the emergency room she had an unremarkable evaluation without metabolic derangement or significant toxicology. She was recently started on dexamethasone and narcotics by her outpatient doctor. The patient was seen this afternoon on rounds, sister and [id number] are at the bedside. The patient is resting comfortably in bed, she has just returned from MRI (required mild sedation with Haldol and Ativan). The patient is very drowsy but is arousable to verbal stimuli. Dr. Du, oncologist, consulted yesterday. She recommended MRI brain and CT chest abdomen pelvis. Results are as follows: 3 x 2 cm sellar and suprasellar mass compressing optic chiasm and hypo-thalamus, right hilar mass with malignant mediastinal adenopathy, T6 and L4 subacute to chronic appearing compression deformities, bilateral adrenal masses. Dr. Du discussed these findings with radiation oncologist, recommended neurosurgical consult for new brain mass. Multiple facilities were contacted - [facility] and [facility] were only accepting emergent patients (emergent criteria being STEMI, trauma, or large vessel disease). [facility] contacted, spoke with Dr. Jones of neurosurgery. He reviewed MRI imaging and feels that the mass is likely a pituitary tumor. He recommends outpatient treatment. Since there is no mass effect, no midline shift, no herniation or vital sign derangements - there is no indication for emergent/urgent surgical intervention at this time. After lengthy discussion, including review of all lab work and PMH, Dr. Jones feels that the AMS is less likely to be related to a pituitary tumor and more likely to be metabolic in origin, or possibly a side effect of medication. Plan to keep patient at [facility]. Complete staging of lung cancer with bronchoscopy guided biopsy. [facility] radiologist does not feel comfortable with CT guided needle biopsy of pulmonary tumor given it's close proximity to the heart. Reason For Visit: ENCEPHALOPATHY, BONE CANCER WITH METS Physical Exam Vital Signs: Temp Pulse Resp BP Pulse Ox 97.1 F 96 24 H 110/66 94 08/15/18 16:00 08/15/18 16:00 08/15/18 16:00 08/15/18 16:00 08/15/18 16:00 Pulse Oximeter Continuous Start: 08/14/18 14: 47 Freq: RTQ4 Status: Complete Document 08/15/18 12:00 [facility] (Rec: 08/15/18 13:23 [facility] [id number]) Pulse Oximetry Assessment Equipment Usage Equipment Standby Continuous SpO2 Machine # 11 Intake & Output 08/14/18 08/15/18 08/16/18 06:59 06:59 06:59 Intake Total 562 300 Balance 562 300 Weight 80 kg General appearance: PRESENT: no acute distress, well-developed Head exam: PRESENT: atraumatic Eye exam: PRESENT: conjunctiva pink, PERRLA Mouth exam: PRESENT: moist, neck supple Teeth exam: PRESENT: poor dentation Neck exam: PRESENT: full ROM Respiratory exam: PRESENT: clear to auscultation kain, symmetrical, unlabored Cardiovascular exam: PRESENT: irregular rhythm, +S1, +S2 Pulses: PRESENT: normal radial pulses, normal dorsalis pedis pul GI/Abdominal exam: PRESENT: normal bowel sounds, soft. ABSENT: tenderness Rectal exam: PRESENT: deferred Extremities exam: PRESENT: full ROM. ABSENT: pedal edema Musculoskeletal exam: PRESENT: ambulatory, full ROM Neurological exam: PRESENT: alert, awake, oriented to person, oriented to place. ABSENT: oriented to time, oriented to situation Psychiatric exam: PRESENT: appropriate affect Skin exam: PRESENT: dry, intact, pallor Results Laboratory Results: 08/15/18 04:43 08/15/18 04:43 08/15/18 08/15/18 08/15/18 04:43 04:43 04:43 WBC 6.5 RBC 3.96 Hgb 12.0 Hct 34.7 L MCV 88 MCH 30.4 MCHC 34.7 RDW 16.0 H Plt Count 245 Seg Neutrophils % 92.6 H Lymphocytes % 5.3 L Monocytes % 1.7 L Eosinophils % 0.2 Basophils % 0.2 Absolute Neutrophils 6.0 Absolute Lymphocytes 0.3 L Absolute Monocytes 0.1 Absolute Eosinophils 0.0 Absolute Basophils 0.0 Sodium 136.7 L Potassium 4.5 Chloride 101 Carbon Dioxide 25 Anion Gap 11 BUN 7 Creatinine 0.66 Est GFR ( Amer) > 60 Est GFR (Non-Af Amer) > 60 Glucose 177 H Calcium 9.4 Total Bilirubin 0.7 AST 33 ALT 19 Alkaline Phosphatase 66 Ammonia < 8.7 L Total Protein 6.9 Albumin 3.7 Impressions: Head CT 08/11/18 19:24 IMPRESSION: No acute findings. Mass in the sella and suprasellar cistern likely the pituitary at adenoma or craniopharyngioma EVIDENCE OF ACUTE STROKE: NO. Chest X-Ray 08/11/18 19:25 IMPRESSION: 5 x 4 cm mass in the right lower hilum worrisome for primary tumor Abdomen/Pelvis CT 08/15/18 00:00 IMPRESSION: Right hilar mass with malignant mediastinal adenopathy T6 and L4 subacute to chronic appearing compression deformities Bilateral adrenal masses Chest CT 08/15/18 00:00 IMPRESSION: Right hilar mass with malignant mediastinal adenopathy T6 and L4 subacute to chronic appearing compression deformities Bilateral adrenal masses Head MRI 08/15/18 00:00 IMPRESSION: 3 x 2 cm sellar and suprasellar mass No brain parenchymal masses or enhancement worrisome for metastatic disease given the large right hilar mass on CT chest today EVIDENCE OF ACUTE STROKE: NO. Status: Imported from PACS Assessment & Plan - Diagnosis (1) Acute encephalopathy Is this a current diagnosis for this admission?: Yes Plan: Encephalopathy improved today. Patient is calm, arousable to voice and able to follow commands. Disoriented to situation and time. MRI brain revealed 3 x 2 cm sellar and suprasellar mass compressing optic chiasm and hypo-thalamus. Pituitary tumor is less likely to be cause of AMS - possible metabolic origin or medication side effect. Discontinue all narcotic medication. Avoid benzodiazepines. Oncology consulted, appreciate their recommendations Plan for scheduled Seroquel and as needed Zyprexa for agitation Family requesting assistance with SNF placement. Discharge planning aware. (2) Brain mass Is this a current diagnosis for this admission?: Yes Plan: 3 x 2 cm sellar and suprasellar mass compressing optic chiasm and hypo-thalamus Continue scheduled steroids. Remaining plan as above. (3) Lung cancer metastatic to bone Is this a current diagnosis for this admission?: Yes Plan: Lung cancer with metastases to the bone Patient has not been seen by oncologist yet, planned for appointment next week in [place] Plan per oncology Oncology consulted - Dr. Du planning for bronchoscopy guided guided biopsy of the lung mass Dr. Howell consulted for assistance with bronchoscopy (4) History of bone cancer Is this a current diagnosis for this admission?: Yes Plan: Lung cancer with mets to bone Plan per oncology - Time Time Spent with patient: 15-24 minutes Medications reviewed and adjusted accordingly: Yes Anticipated discharge: Home - Inpatient Certification Based on my medical assessment, after consideration of the patient's comorbidities, presenting symptoms, or acuity I expect that the services needed warrant INPATIENT care.: Yes I certify that my determination is in accordance with my understanding of Medicare's requirements for reasonable and necessary INPATIENT services [42 CFR 412.3e].: Yes Medical Necessity: Need For Continuous Telemetry Monitoring, Risk of Complication if Not Cared For in Hospital - Plan Summary Plan Summary: PLAN FOR BONCHOSCOPY GUIDED LUNG BIOPSY. CONTINUE SCHEDULED STEROIDS. <ARMIDA ROMAN - Last Filed: 08/16/18 07:59> Subjective Reason For Visit: ENCEPHALOPATHY, BONE CANCER WITH METS Physical Exam Vital Signs: Temp Pulse Resp BP Pulse Ox 97.6 F 89 20 133/68 H 93 08/16/18 04:00 08/16/18 04:00 08/16/18 04:00 08/16/18 04:00 08/16/18 04:00 Pulse Oximeter Continuous Start: 08/14/18 14: 47 Freq: RTQ4 Status: Complete Document 08/15/18 12:00 [facility] (Rec: 08/15/18 13:23 [facility] [id number]) Pulse Oximetry Assessment Equipment Usage Equipment Standby Continuous SpO2 Machine # 11 Intake & Output 08/15/18 08/16/18 08/17/18 06:59 06:59 06:59 Intake Total 562 425 Balance 562 425 Weight 80 kg 79.5 kg Results Laboratory Results: 08/16/18 04:40 08/16/18 04:40 08/16/18 08/16/18 08/16/18 04:40 04:40 04:40 WBC 8.3 RBC 3.67 L Hgb 11.4 L Hct 32.1 L MCV 88 MCH 31.0 MCHC 35.4 RDW 16.1 H Plt Count 263 Sodium 137.4 Potassium 4.7 Chloride 99 Carbon Dioxide 32 H Anion Gap 6 BUN 6 L Creatinine 0.72 Est GFR ( Amer) > 60 Est GFR (Non-Af Amer) > 60 Glucose 135 H Calcium 9.8 Magnesium 1.9 Total Bilirubin 0.6 AST 26 ALT 23 Alkaline Phosphatase 63 Ammonia < 8.7 L Total Protein 6.6 Albumin 3.6 Impressions: Head CT 08/11/18 19:24 IMPRESSION: No acute findings. Mass in the sella and suprasellar cistern likely the pituitary at adenoma or craniopharyngioma EVIDENCE OF ACUTE STROKE: NO. Chest X-Ray 08/11/18 19:25 IMPRESSION: 5 x 4 cm mass in the right lower hilum worrisome for primary tumor Abdomen/Pelvis CT 08/15/18 00:00 IMPRESSION: Right hilar mass with malignant mediastinal adenopathy T6 and L4 subacute to chronic appearing compression deformities Bilateral adrenal masses Chest CT 08/15/18 00:00 IMPRESSION: Right hilar mass with malignant mediastinal adenopathy T6 and L4 subacute to chronic appearing compression deformities Bilateral adrenal masses Head MRI 08/15/18 00:00 IMPRESSION: 3 x 2 cm sellar and suprasellar mass No brain parenchymal masses or enhancement worrisome for metastatic disease given the large right hilar mass on CT chest today EVIDENCE OF ACUTE STROKE: NO. Assessment & Plan - Diagnosis (1) Acute encephalopathy Is this a current diagnosis for this admission?: Yes (2) History of bone cancer Is this a current diagnosis for this admission?: Yes - Plan Summary Plan Summary: I agree with the subjective and objective findings noted above. I fully endorse the plan as described.
[2018-08-15] MEDS: QUETIAPINE FUMARATE 25 MG TABLET PO SCH (21:13)
[2018-08-16 05:11] LABS: HEMATOCRIT 32.1 % (36.0-47.0); HEMOGLOBIN 11.4 g/dL (12.0-15.5); MEAN CORPUSCULAR HGB CONC 35.4 g/dL (32.0-36.0); MEAN CORPUSCULAR VOLUME 88 fl (80-97); PLATELET COUNT 263 10^3/uL (150-450); RED BLOOD COUNT 3.67 10^6/uL (3.72-5.28); RED CELL DISTRIBUTION WIDTH 16.1 % (11.5-14.0); WHITE BLOOD COUNT 8.3 10^3/uL (4.0-10.5)
[2018-08-16] MEDS: DEXAMETHASONE 4 MG TABLET PO SCH ×3 (05:23→21:39)
[2018-08-16 05:36] LABS: ALANINE AMINOTRANSFERASE 23 U/L (9-52); ALBUMIN 3.6 g/dL (3.5-5.0); ALKALINE PHOSPHATASE 63 U/L (38-126); ANION GAP 6 (5-19); ASPARTATE AMINO TRANSFERASE 26 U/L (14-36); BILIRUBIN,DIRECT 0.5 mg/dL (0.0-0.4); BILIRUBIN,TOTAL 0.6 mg/dL (0.2-1.3); BLOOD UREA NITROGEN 6 mg/dL (7-20); CALCIUM 9.8 mg/dL (8.4-10.2); CARBON DIOXIDE 32 mmol/L (22-30); CHLORIDE 99 mmol/L (98-107); GLUCOSE 135 mg/dL (75-110); POTASSIUM 4.7 mmol/L (3.6-5.0); SODIUM 137.4 mmol/L (137-145); TOTAL PROTEIN 6.6 g/dL (6.3-8.2)
[2018-08-16] MEDS: ACETAMINOPHEN 325 MG TABLET PO PRN ×3 (11:57→21:39)
[2018-08-16] MEDS: LIDOCAINE 5% (700 MG) TRANSDERMAL ADH..PATCH TP SCH (16:53)
[2018-08-16] MEDS: IBUPROFEN 600 MG TABLET PO PRN (19:09)
[2018-08-16] MEDS: QUETIAPINE FUMARATE 25 MG TABLET PO SCH (21:40)
[2018-08-17 05:49] LABS: HEMATOCRIT 34.1 % (36.0-47.0); MEAN CORPUSCULAR HEMOGLOBIN 30.8 pg (27.0-33.4); MEAN CORPUSCULAR HGB CONC 35.2 g/dL (32.0-36.0); MEAN CORPUSCULAR VOLUME 87 fl (80-97); PLATELET COUNT 265 10^3/uL (150-450); RED CELL DISTRIBUTION WIDTH 15.9 % (11.5-14.0); WHITE BLOOD COUNT 6.8 10^3/uL (4.0-10.5)
[2018-08-17] MEDS: DEXAMETHASONE 4 MG TABLET PO SCH ×3 (05:58→21:14)
[2018-08-17 06:15] LABS: ALANINE AMINOTRANSFERASE 15 U/L (9-52); ALBUMIN 3.8 g/dL (3.5-5.0); ALKALINE PHOSPHATASE 71 U/L (38-126); ANION GAP 8 (5-19); ASPARTATE AMINO TRANSFERASE 33 U/L (14-36); BILIRUBIN,DIRECT 0.5 mg/dL (0.0-0.4); BILIRUBIN,TOTAL 0.6 mg/dL (0.2-1.3); BLOOD UREA NITROGEN 6 mg/dL (7-20); CALCIUM 9.3 mg/dL (8.4-10.2); CARBON DIOXIDE 32 mmol/L (22-30); CHLORIDE 99 mmol/L (98-107); GLUCOSE 125 mg/dL (75-110); POTASSIUM 4.4 mmol/L (3.6-5.0); SODIUM 138.6 mmol/L (137-145); TOTAL PROTEIN 6.9 g/dL (6.3-8.2)
[2018-08-17] MEDS: LIDOCAINE 5% (700 MG) TRANSDERMAL ADH..PATCH TP SCH (10:29)
[2018-08-17] MEDS: IBUPROFEN 600 MG TABLET PO PRN ×2 (12:17→21:13)
[2018-08-17] MEDS: TRAMADOL HCL 50 MG TABLET PO PRN (13:57)
--- NOTE | 2018-08-17 16:48 | PDOC PROGRESS REPORT ---
Subjective Progress Note for:: 08/17/18 Subjective:: EBENEZER HEBERT is a 72 year old female who presents via EMS after her found her acutely confused at home, EMS reported hypotension during transport, in the emergency room she had an unremarkable evaluation without metabolic derangement or significant toxicology. She was recently started on dexamethasone and narcotics by her outpatient doctor. The patient was seen this afternoon on rounds, is at the bedside. The patient is resting comfortably in bed. She is awake and oriented to self and place, disoriented to time and year. Lengthy discussion with today. He expresses his wishes to have the patient admitted to a longterm facility, he is concerned about being able to care for her properly at home. He states that the patient requires constant supervision in order to ensure her safety and family is not always available. Treatment options were discussed with the patient and . They would like to pursue a lung biopsy as well as meet with a neurosurgeon regarding the patient's brain mass. At this time, the would like the patient to remain a full code and they would like to explore all treatment options. Plan to keep patient at [facility] while discharge planning finds appropriate placement. Reason For Visit: ENCEPHALOPATHY, BONE CANCER WITH METS Physical Exam Vital Signs: Temp Pulse Resp BP Pulse Ox 97.9 F 80 18 146/83 H 95 08/17/18 15:44 08/17/18 15:44 08/17/18 15:44 08/17/18 15:44 08/17/18 15:44 Pulse Oximeter Continuous Start: 08/14/18 14: 47 Freq: RTQ4 Status: Complete Document 08/15/18 12:00 [facility] (Rec: 08/15/18 13:23 [facility] [id number]) Pulse Oximetry Assessment Equipment Usage Equipment Standby Continuous SpO2 Machine # 11 Intake & Output 08/16/18 08/17/18 08/18/18 06:59 06:59 06:59 Intake Total 425 2600 977 Output Total 1000 Balance 425 1600 977 Weight 79.5 kg General appearance: PRESENT: no acute distress, well-developed, well-nourished Head exam: PRESENT: atraumatic, normocephalic Eye exam: PRESENT: conjunctiva pink, EOMI, PERRLA, other - poor vision in L eye - this is new in the last 2 months. patient having difficulty expressing what visaul deficits she is experiencing but she is unable to accurately count fingers in L eye visual armstrong.. ABSENT: scleral icterus Ear exam: PRESENT: normal external ear exam Mouth exam: PRESENT: moist, tongue midline Teeth exam: PRESENT: poor dentation Neck exam: PRESENT: full ROM. ABSENT: carotid bruit, JVD, lymphadenopathy, thyromegaly Respiratory exam: PRESENT: clear to auscultation kain, symmetrical, unlabored Cardiovascular exam: PRESENT: RRR, +S1, +S2 Pulses: PRESENT: normal dorsalis pedis pul Vascular exam: PRESENT: normal capillary refill GI/Abdominal exam: PRESENT: normal bowel sounds, soft. ABSENT: distended, guarding, mass, organolmegaly, rebound, tenderness Rectal exam: PRESENT: deferred Extremities exam: PRESENT: full ROM. ABSENT: calf tenderness, clubbing, pedal edema Musculoskeletal exam: PRESENT: ambulatory, full ROM Neurological exam: PRESENT: alert, awake, oriented to person, oriented to place , oriented to time, oriented to situation Psychiatric exam: PRESENT: normal mood, other - speech is clear. difficulty expressing needs/wants in cohesive sentences. Skin exam: PRESENT: dry, intact, warm Results Laboratory Results: 08/17/18 04:55 08/17/18 04:55 08/17/18 08/17/18 04:55 04:55 WBC 6.8 RBC 3.90 Hgb 12.0 Hct 34.1 L MCV 87 MCH 30.8 MCHC 35.2 RDW 15.9 H Plt Count 265 Sodium 138.6 Potassium 4.4 Chloride 99 Carbon Dioxide 32 H Anion Gap 8 BUN 6 L Creatinine 0.71 Est GFR ( Amer) > 60 Est GFR (Non-Af Amer) > 60 Glucose 125 H Calcium 9.3 Total Bilirubin 0.6 AST 33 ALT 15 Alkaline Phosphatase 71 Total Protein 6.9 Albumin 3.8 Impressions: Head CT 08/11/18 19:24 IMPRESSION: No acute findings. Mass in the sella and suprasellar cistern likely the pituitary at adenoma or craniopharyngioma EVIDENCE OF ACUTE STROKE: NO. Chest X-Ray 08/11/18 19:25 IMPRESSION: 5 x 4 cm mass in the right lower hilum worrisome for primary tumor Abdomen/Pelvis CT 08/15/18 00:00 IMPRESSION: Right hilar mass with malignant mediastinal adenopathy T6 and L4 subacute to chronic appearing compression deformities Bilateral adrenal masses Chest CT 08/15/18 00:00 IMPRESSION: Right hilar mass with malignant mediastinal adenopathy T6 and L4 subacute to chronic appearing compression deformities Bilateral adrenal masses Head MRI 08/15/18 00:00 IMPRESSION: 3 x 2 cm sellar and suprasellar mass No brain parenchymal masses or enhancement worrisome for metastatic disease given the large right hilar mass on CT chest today EVIDENCE OF ACUTE STROKE: NO. Status: Imported from PACS Assessment & Plan - Diagnosis (1) Acute encephalopathy Is this a current diagnosis for this admission?: Yes Plan: Encephalopathy improved today. Patient is calm, arousable to voice and able to follow commands. Disoriented to situation and time. MRI brain revealed 3 x 2 cm sellar and suprasellar mass compressing optic chiasm and hypo-thalamus. Pituitary tumor is less likely to be cause of AMS - possible metabolic origin or medication side effect. Avoid benzodiazepines. Oncology consulted, appreciate their recommendations Scheduled Seroquel, PRN Zyprexa and PRN Haldol for agitation Family requesting assistance with SNF placement. Discharge planning aware. (2) Brain mass Is this a current diagnosis for this admission?: Yes Plan: 3 x 2 cm sellar and suprasellar mass compressing optic chiasm and hypo-thalamus [facility] contacted, spoke with Dr. Jones of neurosurgery. Reviewed MRI imaging and feels that the mass is likely a pituitary tumor. Recommends outpatient treatment. No mass effect, no midline shift, no herniation or vital sign derangements = no indication for emergent/urgent surgical intervention at this time. Dr. Jones feels that the AMS is less likely to be related to a pituitary tumor and more likely to be metabolic in origin, or possibly a side effect of medication. Continue scheduled steroids. Remaining plan as above. (3) Lung cancer metastatic to bone Is this a current diagnosis for this admission?: Yes Plan: Lung cancer with metastases to the bone Patient has not been seen by oncologist yet, planned for appointment next week in [place] Plan per oncology Oncology consulted - Dr. Du planning for bronchoscopy guided guided biopsy of the lung mass Dr. Howell consulted for assistance with bronchoscopy, he states the procedure would best be preformed by a tomato pulper operator at [facility]. Can be done as an outpatient. (4) History of bone cancer Is this a current diagnosis for this admission?: Yes Plan: Lung cancer with mets to bone Plan per oncology - Time Time Spent with patient: 15-24 minutes Medications reviewed and adjusted accordingly: Yes Anticipated discharge: SNF - Inpatient Certification Based on my medical assessment, after consideration of the patient's comorbidities, presenting symptoms, or acuity I expect that the services needed warrant INPATIENT care.: Yes I certify that my determination is in accordance with my understanding of Medicare's requirements for reasonable and necessary INPATIENT services [42 CFR 412.3e].: Yes Medical Necessity: Risk of Complication if Not Cared For in Hospital - Plan Summary Plan Summary: PLAN FOR SNF PLACEMENT NEXT WEEK. CONTINUE ENCEPHALOPATHY WORKUP
[2018-08-17] MEDS: QUETIAPINE FUMARATE 25 MG TABLET PO SCH (21:14)
[2018-08-18] MEDS: IBUPROFEN 600 MG TABLET PO PRN (05:34)
[2018-08-18] MEDS: DEXAMETHASONE 4 MG TABLET PO SCH ×3 (05:34→21:42)
[2018-08-18 05:46] LABS: HEMATOCRIT 35.6 % (36.0-47.0); HEMOGLOBIN 12.4 g/dL (12.0-15.5); MEAN CORPUSCULAR HEMOGLOBIN 30.7 pg (27.0-33.4); MEAN CORPUSCULAR HGB CONC 34.8 g/dL (32.0-36.0); MEAN CORPUSCULAR VOLUME 88 fl (80-97); PLATELET COUNT 317 10^3/uL (150-450); RED BLOOD COUNT 4.03 10^6/uL (3.72-5.28); RED CELL DISTRIBUTION WIDTH 16.3 % (11.5-14.0); WHITE BLOOD COUNT 9.4 10^3/uL (4.0-10.5)
[2018-08-18 06:20] LABS: ALANINE AMINOTRANSFERASE 19 U/L (9-52); ALKALINE PHOSPHATASE 63 U/L (38-126); ANION GAP 11 (5-19); ASPARTATE AMINO TRANSFERASE 32 U/L (14-36); BILIRUBIN,DIRECT 0.3 mg/dL (0.0-0.4); BILIRUBIN,TOTAL 0.6 mg/dL (0.2-1.3); BLOOD UREA NITROGEN 5 mg/dL (7-20); CALCIUM 9.8 mg/dL (8.4-10.2); CARBON DIOXIDE 31 mmol/L (22-30); CHLORIDE 98 mmol/L (98-107); GLUCOSE 126 mg/dL (75-110); POTASSIUM 4.4 mmol/L (3.6-5.0); SODIUM 139.6 mmol/L (137-145); TOTAL PROTEIN 7.3 g/dL (6.3-8.2)
[2018-08-18] MEDS: LIDOCAINE 5% (700 MG) TRANSDERMAL ADH..PATCH TP SCH ×2 (10:31→12:44)
[2018-08-18] MEDS: TRAMADOL HCL 50 MG TABLET PO PRN ×2 (11:44→19:23)
[2018-08-18] MEDS ORDERED: ONDANSETRON 4 MG TAB.RAPDIS PO PRN (12:20)
[2018-08-18] MEDS: LEVOTHYROXINE SODIUM 0.05 MG TABLET PO SCH (14:59)
[2018-08-18] MEDS: LANSOPRAZOLE 30 MG TAB.RAP.DR PO SCH (14:59)
--- NOTE | 2018-08-18 17:19 | PDOC PROGRESS REPORT ---
Subjective Progress Note for:: 08/18/18 Subjective:: EBENEZER HEBERT is a 72 year old female who presents via EMS after her found her acutely confused at home, EMS reported hypotension during transport, in the emergency room she had an unremarkable evaluation without metabolic derangement or significant toxicology. She was recently started on dexamethasone and narcotics by her outpatient doctor. The patient was seen this afternoon on rounds, 2 sons are at the bedside. The patient is resting comfortably in bed. She is awake and oriented to self, place , and time, disoriented to situation. Her demeanor is calm and she is very complimentary of the [facility] medical staff. The patient seems much more lucid today , she is able to clearly communicate her thoughts/wants/needs. The patient complains of lower back pain but states the tramadol and lidocaine patches are helping control her pain. She does endorse mild nausea when taking the tramadol , plan to initiate ODT Zofran. At this time, the patient is stable for discharge to SNF. D/C planning is aware that the family is unable to care for the patient at home. Appreciate their help with finding appropriate placement. Reason For Visit: ENCEPHALOPATHY, BONE CANCER WITH METS Physical Exam Vital Signs: Temp Pulse Resp BP Pulse Ox 97.8 F 70 16 135/76 H 95 08/18/18 16:00 08/18/18 16:00 08/18/18 16:00 08/18/18 16:00 08/18/18 16:00 Pulse Oximeter Continuous Start: 08/14/18 14: 47 Freq: RTQ4 Status: Complete Document 08/15/18 12:00 [facility] (Rec: 08/15/18 13:23 [facility] [id number]) Pulse Oximetry Assessment Equipment Usage Equipment Standby Continuous SpO2 Machine # 11 Intake & Output 08/17/18 08/18/18 08/19/18 06:59 06:59 06:59 Intake Total 2600 977 Output Total 1000 Balance 1600 977 Weight 80.7 kg 79.3 kg General appearance: PRESENT: no acute distress, well-developed, well-nourished Eye exam: PRESENT: conjunctiva pink, PERRLA Mouth exam: PRESENT: moist Teeth exam: PRESENT: poor dentation Neck exam: PRESENT: full ROM. ABSENT: JVD Respiratory exam: PRESENT: clear to auscultation kain, symmetrical, unlabored Cardiovascular exam: PRESENT: +S1, +S2 Pulses: PRESENT: normal radial pulses, normal dorsalis pedis pul Vascular exam: PRESENT: normal capillary refill GI/Abdominal exam: PRESENT: normal bowel sounds, soft. ABSENT: tenderness Rectal exam: PRESENT: deferred Extremities exam: PRESENT: full ROM. ABSENT: pedal edema Musculoskeletal exam: PRESENT: ambulatory, full ROM Neurological exam: PRESENT: alert, awake, oriented to person, oriented to place , oriented to time, oriented to situation Psychiatric exam: PRESENT: appropriate affect Skin exam: PRESENT: intact, normal color Results Laboratory Results: 08/18/18 04:38 08/18/18 04:38 08/18/18 08/18/18 04:38 04:38 WBC 9.4 RBC 4.03 Hgb 12.4 Hct 35.6 L MCV 88 MCH 30.7 MCHC 34.8 RDW 16.3 H Plt Count 317 Sodium 139.6 Potassium 4.4 Chloride 98 Carbon Dioxide 31 H Anion Gap 11 BUN 5 L Creatinine 0.69 Est GFR ( Amer) > 60 Est GFR (Non-Af Amer) > 60 Glucose 126 H Calcium 9.8 Total Bilirubin 0.6 AST 32 ALT 19 Alkaline Phosphatase 63 Total Protein 7.3 Albumin 4.0 Impressions: Head CT 08/11/18 19:24 IMPRESSION: No acute findings. Mass in the sella and suprasellar cistern likely the pituitary at adenoma or craniopharyngioma EVIDENCE OF ACUTE STROKE: NO. Chest X-Ray 08/11/18 19:25 IMPRESSION: 5 x 4 cm mass in the right lower hilum worrisome for primary tumor Abdomen/Pelvis CT 08/15/18 00:00 IMPRESSION: Right hilar mass with malignant mediastinal adenopathy T6 and L4 subacute to chronic appearing compression deformities Bilateral adrenal masses Chest CT 08/15/18 00:00 IMPRESSION: Right hilar mass with malignant mediastinal adenopathy T6 and L4 subacute to chronic appearing compression deformities Bilateral adrenal masses Head MRI 08/15/18 00:00 IMPRESSION: 3 x 2 cm sellar and suprasellar mass No brain parenchymal masses or enhancement worrisome for metastatic disease given the large right hilar mass on CT chest today EVIDENCE OF ACUTE STROKE: NO. Status: Imported from PACS Assessment & Plan - Diagnosis (1) Acute encephalopathy Is this a current diagnosis for this admission?: Yes Plan: Encephalopathy improved today. Patient is calm, arousable to voice and able to follow commands. Disoriented to situation. MRI brain revealed 3 x 2 cm sellar and suprasellar mass compressing optic chiasm and hypo-thalamus. Read below regarding discussion with [facility]surgeon, Dr. Jones. Pituitary tumor is less likely to be cause of AMS - possible metabolic origin or medication side effect. Avoid benzodiazepines and all sedative medications. Patient's mental status has greatly improved over the last 48hrs as a result of this. Primarily using Tylenol, motrin and lidocaine patches for pain control Oncology consulted, appreciate their recommendations Scheduled Seroquel. Family requesting assistance with SNF placement. Discharge planning aware. (2) Brain mass Is this a current diagnosis for this admission?: Yes Plan: 3 x 2 cm sellar and suprasellar mass compressing optic chiasm and hypo-thalamus [facility] contacted, spoke with Dr. Jones of neurosurgery. Reviewed MRI imaging and feels that the mass is likely a pituitary tumor. Recommends outpatient treatment. No mass effect, no midline shift, no herniation or vital sign derangements = no indication for emergent/urgent surgical intervention at this time. Dr. Jones feels that the AMS is less likely to be related to a pituitary tumor and more likely to be metabolic in origin, or possibly a side effect of medication. Continue scheduled steroids. Remaining plan as above. (3) Lung cancer metastatic to bone Is this a current diagnosis for this admission?: Yes Plan: Lung cancer with metastases to the bone Patient has not been seen by oncologist yet, planned for appointment next week in [place] Oncology consulted - Dr. Du planning for bronchoscopy guided biopsy of the lung mass Dr. Howell consulted for assistance with bronchoscopy, he states the procedure would best be preformed by a health support specialist at [facility]. Can be done as an outpatient. (4) History of bone cancer Is this a current diagnosis for this admission?: Yes Plan: Lung cancer with mets to bone Plan per oncology - Time Time Spent with patient: 15-24 minutes Medications reviewed and adjusted accordingly: Yes Anticipated discharge: Home - Inpatient Certification Based on my medical assessment, after consideration of the patient's comorbidities, presenting symptoms, or acuity I expect that the services needed warrant INPATIENT care.: Yes I certify that my determination is in accordance with my understanding of Medicare's requirements for reasonable and necessary INPATIENT services [42 CFR 412.3e].: Yes Medical Necessity: Risk of Complication if Not Cared For in Hospital - Plan Summary Plan Summary: PLAN TO DISCUSS SNF PLACEMENT WITH D/C PLANNING TOMORROW
[2018-08-18] MEDS: QUETIAPINE FUMARATE 25 MG TABLET PO SCH (21:42)
[2018-08-19] MEDS: LEVOTHYROXINE SODIUM 0.05 MG TABLET PO SCH (05:39)
[2018-08-19] MEDS: LANSOPRAZOLE 30 MG TAB.RAP.DR PO SCH (05:40)
[2018-08-19] MEDS: DEXAMETHASONE 4 MG TABLET PO SCH ×2 (05:40→15:56)
[2018-08-19] MEDS: TRAMADOL HCL 50 MG TABLET PO PRN (10:21)
[2018-08-19] MEDS: LIDOCAINE 5% (700 MG) TRANSDERMAL ADH..PATCH TP SCH (10:21)
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
--- NOTE | 2018-08-19 14:37 | PDOC CONSULTATION ---
Consultation Consult Date: 08/19/18 Attending physician:: JOSE ZAMORANO Consult reason:: Lung mass History of Present Illness Admission Date/PCP: 08/14/18 17:55 History of Present Illness: EBENEZER HEBERT is a 72 year old female,Chronic back pain subsequent radiographs show her to have a right upper lobe mass she denies hemoptysis her PPD status unknown she has no history of chronic lung disease as a child or adolescent she missed exposure large amounts of passive smoke as a child as well as an adult she herself has smoked maybe half a pack a day for 23 years no pets no recent travel. No angina-like chest pain sleeps on 2-3 pillows no PND frequent nocturnal cough no edema admits to snoring restless sleep nocturia 3-4 times per night unrestful sleep and excessive daytime somnolence Past Medical History Cardiac Medical History: Reports: Hypertension Pulmonary Medical History: Reports: Chronic Obstructive Pulmonary Disease (COPD) Endocrine Medical History: Reports: Hypothyroidism Malignancy Medical History: Reports: Bone Cancer GI Medical History: Reports: Gastroesophageal Reflux Disease Psychiatric Medical History: Denies: Depression Past Surgical History Past Surgical History: Reports: None Social History Lives with: Family Smoking Status: Former Smoker Cigarettes Packs Per Day: 0.5 Number of Years Smokin Passive smoke exposure as: Both Frequency of Alcohol Use: None Hx Recreational Drug Use: No Drugs: None Hx Prescription Drug Abuse: No Do you have pets?: Yes Have you had any respiratory illnesses as a child?: No Have you been exposed to any sick contacts recently?: No Have you had any recent respiratory illnesses?: No - Advance Directive Resuscitation Status: Full Code Family History Family History: DM, Hyperlipidemia, Hypertension, Thyroid Disfunction Parental Family History Reviewed: Yes Children Family History Reviewed: Yes Sibling(s) Family History Reviewed.: Yes Medication/Allergy Home Medications: Ibuprofen [Motrin 600 mg Tablet] 600 mg PO Q8HP PRN 08/14/18 Levothyroxine Sodium [Synthroid 0.05 mg Tablet] 50 mcg PO DAILY 08/14/18 Omeprazole 40 mg PO QAM 08/14/18 Ondansetron HCl [Zofran 8 mg Tablet] 8 mg PO Q6HP PRN 08/14/18 Dexamethasone [Decadron 4 mg Tablet] 4 mg PO Q12 #20 tablet 08/19/18 Lidocaine [Lidoderm 5% (700 mg) Transdermal Patch] 1 patch TP DAILY #15 adh..patch 08/19/18 Quetiapine Fumarate [Seroquel 25 mg Tablet] 25 mg PO QHS #20 tablet 08/19/18 Tramadol HCl [Ultram 50 mg Tablet] 50 mg PO Q6HP PRN #20 tablet 08/19/18 Allergies/Adverse Reactions: No Known Allergies Allergy (Unverified 08/12/18 03:07) Review of Systems Constitutional: PRESENT: fatigue, weight gain Eyes: ABSENT: visual disturbances Ears: ABSENT: hearing changes Nose, Mouth, and Throat: ABSENT: mouth pain, sore throat Cardiovascular: PRESENT: chest pain, dyspnea on exertion, orthropnea. ABSENT: edema, palpitations Respiratory: PRESENT: cough. ABSENT: hemoptysis Gastrointestinal: PRESENT: constipation, diarrhea, heartburn. ABSENT: abdominal pain, coffee ground emesis, hematemesis, hematochezia, melena Genitourinary: PRESENT: nocturia. ABSENT: hematuria Integumentary: PRESENT: pruritus Psychiatric: ABSENT: hallucinations, homidical ideation, suicidal ideation Endocrine: ABSENT: polydipsia, polyphagia, polyuria Hematologic/Lymphatic: ABSENT: easy bleeding, easy bruising Physical Exam Vital Signs: Temp Pulse Resp BP Pulse Ox 97.6 F 72 18 148/82 H 96 08/19/18 04:28 08/19/18 07:13 08/19/18 07:13 08/19/18 07:13 08/19/18 07:13 Pulse Oximeter Continuous Start: 08/14/18 14: 47 Freq: RTQ4 Status: Complete Document 08/15/18 12:00 [facility] (Rec: 08/15/18 13:23 [facility] [id number]) Pulse Oximetry Assessment Equipment Usage Equipment Standby Continuous SpO2 Machine # 11 Intake & Output 08/18/18 08/19/18 08/20/18 06:59 06:59 06:59 Intake Total 977 2190 Balance 977 2190 Weight 79.3 kg General appearance: PRESENT: no acute distress, cooperative, obese, well- developed, well-nourished Head exam: PRESENT: atraumatic, normocephalic Eye exam: PRESENT: conjunctiva pale, EOMI, other. ABSENT: nystagmus, periorbital swelling, scleral icterus Mouth exam: PRESENT: dry mucosa, neck supple, tongue midline Neck exam: PRESENT: thyromegaly. ABSENT: carotid bruit, JVD, lymphadenopathy, tracheal deviation, tracheostomy Respiratory exam: PRESENT: decreased breath sounds, prolonged expiratory phas, rhonchi, unlabored. ABSENT: retraction, stridor, tachypnea Cardiovascular exam: PRESENT: RRR, +S1, +S2. ABSENT: tachycardia Pulses: PRESENT: normal radial pulses GI/Abdominal exam: PRESENT: normal bowel sounds, soft. ABSENT: tenderness Extremities exam: ABSENT: calf tenderness, clubbing Musculoskeletal exam: ABSENT: deformity, dislocation, tenderness Neurological exam: PRESENT: alert, awake Skin exam: PRESENT: dry, warm Results Laboratory Results: 08/18/18 04:38 08/18/18 04:38 Impressions: Head CT 08/11/18 19:24 IMPRESSION: No acute findings. Mass in the sella and suprasellar cistern likely the pituitary at adenoma or craniopharyngioma EVIDENCE OF ACUTE STROKE: NO. Chest X-Ray 08/11/18 19:25 IMPRESSION: 5 x 4 cm mass in the right lower hilum worrisome for primary tumor Abdomen/Pelvis CT 08/15/18 00:00 IMPRESSION: Right hilar mass with malignant mediastinal adenopathy T6 and L4 subacute to chronic appearing compression deformities Bilateral adrenal masses Chest CT 08/15/18 00:00 IMPRESSION: Right hilar mass with malignant mediastinal adenopathy T6 and L4 subacute to chronic appearing compression deformities Bilateral adrenal masses Head MRI 08/15/18 00:00 IMPRESSION: 3 x 2 cm sellar and suprasellar mass No brain parenchymal masses or enhancement worrisome for metastatic disease given the large right hilar mass on CT chest today EVIDENCE OF ACUTE STROKE: NO. Assessment & Plan - Diagnosis (1) Lung cancer metastatic to bone Is this a current diagnosis for this admission?: Yes Plan: Discuss with primary care physician suggested that bronchoscopy done under navigational guidance per Dr. Jaspal albright at [facility]
[2018-08-19 14:41] VITALS: BP 142/73
[2018-08-19] MEDS ORDERED: PHARMACY COMMUNICATION ORDER MC SCH (22:00)
== END 2018-08-19 16:41 | DRG 71 ==
LOC: ER 19:01 → INTOOBSV 08-12 02:54 → EH 08-12 02:54 → 4W 08-12 11:08 → 5 08-13 19:54 → OBSVTOIN 08-14 17:55
PROVIDERS: ADMIT Internal Medicine; ATTEND Internal Medicine
DX: G93.40 Encephalopathy, unspecified (principal); C79.89 Secondary malignant neoplasm of other specified sites; C34.90 Malignant neoplasm of unspecified part of unspecified bronchus or lung; C79.51 Secondary malignant neoplasm of bone; I95.9 Hypotension, unspecified; R22.0 Localized swelling, mass and lump, head; R41.82 Altered mental status, unspecified; E03.9 Hypothyroidism, unspecified; I10 Essential (primary) hypertension; K21.9 Gastro-esophageal reflux disease without esophagitis; Z87.891 Personal history of nicotine dependence
CPT/HCPCS: 36415; 70450; 70553; 71045; 71260; 74177; 80048; 80053; 80307; 81001; 82140; 82533; 83735; 84439; 84443; 84481; 84484; 85025; 85027; 85610; 85730; 93005; 93010; 94762; 99285; A9576; G0378; J1100; J1630; J1644; J2060; S0119

== ENCOUNTER 2018-08-22 14:40 | Inpatient (IN) | payer MEDICARE ==
--- NOTE | 2018-08-22 15:01 | ER Document Report ---
ED General - General Stated Complaint: ALTERED Time Seen by Provider: 08/22/18 14:54 Notes: Patient is a 72-year-old female that presents to the emergency department for chief complaint of altered mental status. Patient was at her detention facility for rehab, and apparently became combative and altered, stating that everyone was out to get her, and was argumentative and pushed patients and staff including her and other family members. Stating that they are all out to get her. In discussing with the patient's daughters at bedside, she stated that this is abnormal for her, stating that she can be mean at times, but this is out of the ordinary. She has had an episode like this in the past, which did result her being hospitalized and sent her to rehab a few weeks ago. She does have metastatic lung carcinoma, and does have a brain lesion, but they do not know the details. She was due to be discharged to home, today. The patient will not answer questions, she is being argumentative, and dismissive. Past Medical History: Metastatic lung carcinoma Past Surgical History: Not obtainable at this time Social History: Currently was living with family, until recently placed in a longterm, smoking history. Family History: Reviewed and noncontributory for presenting illness Allergies: Reviewed, see documented allergy list. REVIEW OF SYSTEMS: Unless otherwise stated in this report the patient's positive and negative responses for review of systems for constitutional, eyes, ENT, cardiovascular, respiratory, gastrointestinal, neurological, genitourinary, musculoskeletal, and integumentary systems and related systems to the presenting problem are either as stated in the HPI or were not pertinent or were negative for the symptoms and/or complaints related to the presenting medical problem. PHYSICAL EXAMINATION: Vital signs reviewed, nursing noted reviewed. GENERAL: Elderly female, argumentative HEAD: Atraumatic, normocephalic. EYES: Eyes appear normal, extraocular movements intact, sclera anicteric, conjunctiva are normal. PERRLA ENT: nares patent, oropharynx clear without exudates. Moist mucous membranes. NECK: Normal range of motion, supple without lymphadenopathy LUNGS: Breath sounds clear to auscultation bilaterally and equal. No wheezes rales or rhonchi. HEART: Regular rate and rhythm without murmurs ABDOMEN: Soft, nontender, normoactive bowel sounds. No rebound, guarding, or rigidity. No masses appreciated. EXTREMITIES: Nontender, good range of motion, no pitting or edema. NEUROLOGICAL: No focal neurological deficits. Moves all extremities spontaneously Motor and sensory grossly intact on exam. PSYCH: Altered mood, argumentative SKIN: Warm, Dry, normal turgor, no rashes or lesions noted on exposed skin Shot allergy to leave AMA TRAVEL OUTSIDE OF THE [place] IN LAST 30 DAYS: No - Related Data Allergies/Adverse Reactions: No Known Allergies Allergy (Unverified 08/12/18 03:07) Past Medical History - Social History Smoking Status: Former Smoker Family History: DM, Hyperlipidemia, Hypertension, Thyroid Disfunction - Past Medical History Cardiac Medical History: Reports: Hx Hypertension Pulmonary Medical History: Reports: Hx COPD Endocrine Medical History: Reports: Hx Hypothyroidism Renal/ Medical History: Denies: Hx Peritoneal Dialysis Malignancy Medical History: Reports: Hx Bone Cancer GI Medical History: Reports: Hx Gastroesophageal Reflux Disease Psychiatric Medical History: Denies: Hx Depression - Immunizations Hx Diphtheria, Pertussis, Tetanus Vaccination: Yes Physical Exam - Vital signs Vitals: Temp Pulse Resp BP Pulse Ox 98.2 F 80 16 133/65 H 95 08/22/18 14:47 08/22/18 14:47 08/22/18 14:47 08/22/18 14:47 08/22/18 14:47 Course - Re-evaluation Re-evalutation: Patient seen and examined vital signs reviewed. Laboratory data and imaging were ordered as appropriate for the patient's presenting symptoms and complaint, with consideration of any critical or life threatening conditions that may be associated with their obtained history and exam as noted above. Patient was treated with IM Haldol Results were reviewed when available and demonstrated unremarkable urinalysis, CT of the head with the exception of previous findings of sellar and suprasellar mass, unchanged, chest x-ray demonstrated prior known lesion without change, blood work is essentially unremarkable. The patient was re-evaluated and was improved, and more cooperative after receiving IM Haldol 5 mg Evaluation was most consistent with encephalopathy, etiology unclear, could be related to the patient's metastatic carcinoma, I recommended to the family that she be observed overnight, and seen by social work, to develop a more safe plan for the patient as she apparently would not be safe at home, as they fear that she may run away, as she has been so argumentative. Will consult social work, and psychiatry, for possible geriatric psych placement if patient meets criteria. I also discussed this with the oncologist, as the patient had an appointment tomorrow, and place a consult for oncology to see the patient while she is in the emergency department. *Note is created using voice recognition software and may contain spelling, syntax or grammatical errors. Laboratory 08/22/18 08/22/18 08/22/18 16:54 16:54 16:54 WBC 11.0 H RBC 4.38 Hgb 13.5 Hct 39.0 MCV 89 MCH 30.8 MCHC 34.6 RDW 16.5 H Plt Count 327 Total Counted 100 Seg Neutrophils % Not Reportable Seg Neuts % (Manual) 95 H Lymphocytes % Not Reportable Lymphocytes % (Manual) 1 L Monocytes % Not Reportable Monocytes % (Manual) 4 Eosinophils % Not Reportable Eosinophils % (Manual) 0 Basophils % Not Reportable Basophils % (Manual) 0 Absolute Neutrophils Not Reportable Abs Neuts (Manual) 10.5 H Absolute Lymphocytes Not Reportable Abs Lymphs (Manual) 0.1 L Absolute Monocytes Not Reportable Abs Monocytes (Manual) 0.4 Absolute Eosinophils Not Reportable Absolute Eos (Manual) 0.0 Absolute Basophils Not Reportable Abs Basophils (Manual) 0.0 Large Platelets PRESENT Platelet Comment ADEQUATE Sodium 138.0 Potassium 4.5 Chloride 95 L Carbon Dioxide 37 H Anion Gap 6 BUN 9 Creatinine 0.87 Est GFR ( Amer) > 60 Est GFR (Non-Af Amer) > 60 Glucose 139 H Calcium 10.0 Total Bilirubin 0.9 Direct Bilirubin 0.4 Neonat Total Bilirubin Not Reportable Neonat Direct Bilirubin Not Reportable Neonat Indirect Bili Not Reportable AST 31 ALT 21 Alkaline Phosphatase 70 Creatine Kinase 45 Troponin I < 0.012 Total Protein 7.4 Albumin 4.3 TSH Urine Color Urine Appearance Urine pH Ur Specific [place] Urine Protein Urine Glucose (UA) Urine Ketones Urine Blood Urine Nitrite Urine Bilirubin Urine Urobilinogen Ur Leukocyte Esterase Urine WBC (Auto) Squamous Epi Cells Auto Urine Ascorbic Acid 08/22/18 08/22/18 16:54 17:55 WBC RBC Hgb Hct MCV MCH MCHC RDW Plt Count Total Counted Seg Neutrophils % Seg Neuts % (Manual) Lymphocytes % Lymphocytes % (Manual) Monocytes % Monocytes % (Manual) Eosinophils % Eosinophils % (Manual) Basophils % Basophils % (Manual) Absolute Neutrophils Abs Neuts (Manual) Absolute Lymphocytes Abs Lymphs (Manual) Absolute Monocytes Abs Monocytes (Manual) Absolute Eosinophils Absolute Eos (Manual) Absolute Basophils Abs Basophils (Manual) Large Platelets Platelet Comment Sodium Potassium Chloride Carbon Dioxide Anion Gap BUN Creatinine Est GFR ( Amer) Est GFR (Non-Af Amer) Glucose Calcium Total Bilirubin Direct Bilirubin Neonat Total Bilirubin Neonat Direct Bilirubin Neonat Indirect Bili AST ALT Alkaline Phosphatase Creatine Kinase Troponin I Total Protein Albumin TSH 1.82 Urine Color STRAW Urine Appearance CLEAR Urine pH 7.0 Ur Specific [place] 1.002 Urine Protein NEGATIVE Urine Glucose (UA) NEGATIVE Urine Ketones NEGATIVE Urine Blood NEGATIVE Urine Nitrite NEGATIVE Urine Bilirubin NEGATIVE Urine Urobilinogen NEGATIVE Ur Leukocyte Esterase NEGATIVE Urine WBC (Auto) 1 Squamous Epi Cells Auto <1 Urine Ascorbic Acid NEGATIVE Chest X-Ray 08/22/18 15:00 IMPRESSION: RIGHT INFRAHILAR MASS, UNCHANGED. NO ACUTE RADIOGRAPHIC FINDING IN THE CHEST. Head CT 08/22/18 15:00 IMPRESSION: No significant interval change as compared to the previous studies. The previously described sellar and suprasellar mass is again identified. No other significant intracranial abnormalities were identified. Other findings as noted above. EVIDENCE OF ACUTE STROKE: NO. - Vital Signs Vital signs: Temp Pulse Resp BP Pulse Ox 98 F 82 14 145/78 H 98 08/22/18 21:07 08/22/18 21:07 08/22/18 21:07 08/22/18 21:07 08/22/18 21:07 - Laboratory Result Diagrams: 08/22/18 16:54 08/22/18 16:54 Laboratory results interpreted by me: 08/22/18 08/22/18 16:54 16:54 WBC 11.0 H RDW 16.5 H Seg Neuts % (Manual) 95 H Lymphocytes % (Manual) 1 L Abs Neuts (Manual) 10.5 H Abs Lymphs (Manual) 0.1 L Chloride 95 L Carbon Dioxide 37 H Glucose 139 H - EKG Interpretation by Me Additional EKG results interpreted by me: EKG demonstrates sinus rhythm with a ventricular rate of 82 bpm, normal axis, QTC 486 ms, there are T wave inversions in leads V3 through V6, this is compared with prior EKG from 08/11/2018, with out significant change. Discharge - Discharge Clinical Impression: Acute encephalopathy, Disruptive behavior Condition: Stable
[2018-08-22] MEDS ORDERED: HALOPERIDOL LACTATE INJ 5 MG/1 ML VIAL IM ONE (15:09)
--- NOTE | 2018-08-22 16:19 | RADIOLOGY REPORT (SQ) ---
EXAM DESCRIPTION: CHEST SINGLE VIEW COMPLETED DATE/TIME: 08/22/2018 4:04 pm REASON FOR STUDY: altered mental status COMPARISON: None. EXAM PARAMETERS: NUMBER OF VIEWS: One view. TECHNIQUE: Single frontal radiographic view of the chest acquired. RADIATION DOSE: NA LIMITATIONS: None. FINDINGS: LUNGS AND PLEURA: Right infrahilar mass, unchanged. Lungs otherwise clear. No lobar infi ltrates. No pleural effusion. No pneumothorax. MEDIASTINUM AND HILAR STRUCTURES: No masses. Contour normal. HEART AND VASCULAR STRUCTURES: Heart normal in size. Normal vasculature. BONES: No acute findings. HARDWARE: None in the chest. OTHER: No other significant finding. IMPRESSION: RIGHT INFRAHILAR MASS, UNCHANGED. NO ACUTE RADIOGRAPHIC FINDING IN THE CHEST. TECHNICAL DOCUMENTATION: JOB ID: [id number] [employer]- All Rights Reserved Reading location - IP/workstation name: [email or web address]
[2018-08-22 17:04] LABS: HEMOGLOBIN 13.5 g/dL (12.0-15.5); MEAN CORPUSCULAR HEMOGLOBIN 30.8 pg (27.0-33.4); MEAN CORPUSCULAR HGB CONC 34.6 g/dL (32.0-36.0); MEAN CORPUSCULAR VOLUME 89 fl (80-97); PLATELET COUNT 327 10^3/uL (150-450); RED BLOOD COUNT 4.38 10^6/uL (3.72-5.28); RED CELL DISTRIBUTION WIDTH 16.5 % (11.5-14.0)
--- NOTE | 2018-08-22 17:08 | RADIOLOGY REPORT (SQ) ---
EXAM DESCRIPTION: CT HEAD WITHOUT COMPLETED DATE/TIME: 08/22/2018 4:36 pm REASON FOR STUDY: altered mental status, hx brain ca. COMPARISON: MRI of the brain dated 08/15/[address] scan dated 08/13/2018 TECHNIQUE: Axial images acquired through the brain without intravenous contrast. Images reviewed wi th bone, brain and subdural windows. Additional sagittal and coronal reconstructions were generated. Images stored on PACS. All CT scanners at this facility use dose modulation, iterative reconstruction, and/or weight based d osing when appropriate to reduce radiation dose to as low as reasonably achievable (ALARA). [facility]: Dose Right [facility]: CareDose [facility]: Dose Right [facility]: Teradose 4D [facility]: Smart [employer] RADIATION DOSE: mGy. LIMITATIONS: None. FINDINGS: VENTRICLES: Normal size and contour. CEREBRUM: No midline shift. No evidence for acute infarction. Normal flannery/white matter differentia tion. No areas of low density in the white matter. CEREBELLUM: No masses. No hemorrhage. No alteration of density. No evidence for acute infarction. EXTRAAXIAL SPACES: No fluid collections. No masses. ORBITS AND GLOBE: No intra- or extraconal masses. Normal contour of globe without masses. CALVARIUM: The previously described benign calvarium hemangioma over the convexity on the right is ag ain identified. PARANASAL SINUSES: No fluid or mucosal thickening. SOFT TISSUES: No mass or hematoma. OTHER: The previously described sellar and suprasellar mass is again identified and appears unchanged . IMPRESSION: No significant interval change as compared to the previous studies. The previously desc ribed sellar and suprasellar mass is again identified. No other significant intracranial abnormaliti es were identified. Other findings as noted above. EVIDENCE OF ACUTE STROKE: NO. COMMENT: Quality ID # [id number]: Final reports with documentation of one or more dose reduction techniques (e.g., Automated exposure control, adjustment of the mA and/or kV according to patient size, use of iterative reconstruction technique) TECHNICAL DOCUMENTATION: JOB ID: [id number] [email or web address]- All Rights Reserved Reading location - IP/workstation name: [email or web address]
[2018-08-22 17:22] LABS: ALANINE AMINOTRANSFERASE 21 U/L (9-52); ALBUMIN 4.3 g/dL (3.5-5.0); ALKALINE PHOSPHATASE 70 U/L (38-126); ANION GAP 6 (5-19); ASPARTATE AMINO TRANSFERASE 31 U/L (14-36); BILIRUBIN,DIRECT 0.4 mg/dL (0.0-0.4); BILIRUBIN,TOTAL 0.9 mg/dL (0.2-1.3); BLOOD UREA NITROGEN 9 mg/dL (7-20); CARBON DIOXIDE 37 mmol/L (22-30); CHLORIDE 95 mmol/L (98-107); CREATINE KINASE 45 U/L (30-135); GLUCOSE 139 mg/dL (75-110); POTASSIUM 4.5 mmol/L (3.6-5.0); TOTAL PROTEIN 7.4 g/dL (6.3-8.2)
[2018-08-22 17:30] LABS: ABSOLUTE LYMPHOCYTES# (MANUAL) 0.1 10^3/uL (0.5-4.7); ABSOLUTE MONOCYTES # (MANUAL) 0.4 10^3/uL (0.1-1.4); ABSOLUTE NEUTROPHILS# (MANUAL) 10.5 10^3/uL (1.7-8.2); BASOPHILS % (MANUAL) 0 % (0-2); EOSINOPHILS % (MANUAL) 0 % (0-6); LYMPHOCYTES % (MANUAL) 1 % (13-45); MONOCYTES % (MANUAL) 4 % (3-13); PLATELET COMMENT ADEQUATE; SEGMENTED NEUTROPHILS % (MAN) 95 % (42-78); TOTAL CELLS COUNTED 100
[2018-08-22 17:31] LABS: PLATELET LARGE PRESENT
[2018-08-22 18:22] LABS: APPEARANCE,URINE CLEAR; BILIRUBIN,URINE NEGATIVE (NEGATIVE); GLUCOSE, URINE NEGATIVE (NEGATIVE); KETONES,URINE NEGATIVE (NEGATIVE); LEUKOCYTE ESTERASE,URINE NEGATIVE (NEGATIVE); NITRITE,URINE NEGATIVE (NEGATIVE); PROTEIN,URINE NEGATIVE (NEGATIVE); URINE SPECIFIC GRAVITY 1.002; UROBILINOGEN,URINE NEGATIVE mg/dL (<2.0)
[2018-08-22 18:25] LABS: COLOR,URINE STRAW
[2018-08-23] MEDS ORDERED: OXYCODONE HCL SR 10 MG TABLET PO ONE (08:30)
[2018-08-23] MEDS ORDERED: ONDANSETRON 4 MG TAB.RAPDIS ONE (08:53)
--- NOTE | 2018-08-23 09:24 | ER Document Report ---
Doctor's Note Notes: 08/23/18 09:20 Rounding: Patient seen and evaluated. No current complaints. Vitals stable. Oncologist came to bedside and contacted hospitalist for admission. Dr. Payne will admit patient.
--- NOTE | 2018-08-23 10:32 | PSYCHOLOGICAL NOTE ---
Psych Note - Psych Note Psych Note: Reason for Consult: AMS Patient is a 72-year-old female that presents to the emergency department for chief complaint of altered mental status. Patient reports that she just wants to have nurses and doctors who are not "knuckle heads." She reports she has had difficulties with dealing with many medical personnel and is tired of dealing with them. Clinician spoke with patient's family. They disclose concern the patient had a behavioral outburst want to ensure that the patient is stable so she can be cared for appropriately. Patient is alert and orientated to person, place, and circumstance. Mood is irritable with congruent affect. Patient denies suicidal and homicidal ideation. Delusions are absent behaviors congruent with an intact reality based presentation i.e. organized and linear thought process. Eye contact is poor. Intellectual abilities appear to be within the average range. Attention and concentration are fair. Insight, judgment, impulse control are fair. Chart review conducted: 08/15/2018 MRI brain revealed 3 x 2 cm sellar and suprasellar mass compressing optic chiasm and hypo-thalamus. Lung cancer with metastases to the bone Medication recommendations per [facility] was contracted psychiatrist Dr. Albaro FRASER are as follows Celexa 20 every 10 a.m. 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 Ativan, Xanax, Valium, Klonopin), antipsychotics (e.g. Haldol, Geodon, Zyprexa, Seroquel), and some sleep aids ( e.g. Ambien, Lunesta, Sonata) as these have been known to cause and/or increased symptoms of aggression psychosis and paranoia in patients with neurodegenerative processes such as dementia, Alzheimer's disease, traumatic brain injury, etc. Patient falls into this category because of her diagnosed brain tumor. Attending physician is asked to please reconsult in 72 hours if patient is still at [facility] BEDS AT THE [facility] and it is felt the medication is not effective in addressing her difficulty with sleep, appetite, and possible depression. Dr. Wallis was consulted and the care management this patient; attending physician is agreement with recommendations and disposition.
[2018-08-23] MEDS: ENOXAPARIN SODIUM INJ 30 MG/0.3 ML DISP.SYRIN SUBCUT SCH (10:51)
[2018-08-23] MEDS ORDERED: (PENDING PHARMACY ID) (Ondansetron [Ondansetron Odt] 8 MG) PO PRN (16:27)
[2018-08-23] MEDS ORDERED: IBUPROFEN 600 MG TABLET PO PRN (16:27)
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
[2018-08-23] MEDS: OXYCODONE-ACETAMINOPHEN 5-325 MG TABLET PO PRN (17:47)
--- NOTE | 2018-08-23 20:57 | EKG REPORT ---
SEVERITY:- ABNORMAL ECG - SINUS RHYTHM ABNORMAL T, CONSIDER ISCHEMIA, DIFFUSE LEADS BORDERLINE PROLONGED QT INTERVAL : Confirmed by: Mariana Gu MD 23-Aug-2018 20:56:30
[2018-08-23] MEDS: CYCLOBENZAPRINE HCL 10 MG TABLET PO SCH (21:07)
[2018-08-23] MEDS ORDERED: (PENDING PHARMACY ID) (Cyclobenzaprine Hcl [Flexeril 5 Mg Tablet] 5 MG) PO SCH (22:00)
[2018-08-24] MEDS: LEVOTHYROXINE SODIUM 0.05 MG TABLET PO SCH (05:07)
[2018-08-24] MEDS: CYCLOBENZAPRINE HCL 10 MG TABLET PO SCH ×3 (05:07→21:22)
[2018-08-24] MEDS: LANSOPRAZOLE 30 MG TAB.RAP.DR PO SCH (07:07)
[2018-08-24] MEDS: OXYCODONE-ACETAMINOPHEN 5-325 MG TABLET PO PRN (07:11)
[2018-08-24] MEDS ORDERED: DEXAMETHASONE 0.75 MG PO SCH (10:00)
[2018-08-24] MEDS ORDERED: DEXAMETHASONE 0.5 MG TABLET PO SCH ×2 (10:00)
[2018-08-24] MEDS ORDERED: DEXAMETHASONE 4 MG TABLET PO SCH (10:00)
[2018-08-24] MEDS: CITALOPRAM HYDROBROMIDE 20 MG TABLET PO SCH (10:17)
[2018-08-24] MEDS: AMLODIPINE BESYLATE 5 MG TABLET PO SCH (10:17)
[2018-08-24] MEDS: ENOXAPARIN SODIUM INJ 30 MG/0.3 ML DISP.SYRIN SUBCUT SCH (10:22)
--- NOTE | 2018-08-24 10:31 | PDOC PROGRESS REPORT ---
Subjective Progress Note for:: 08/24/18 Subjective:: Patient is comfortable mild nausea but she is tolerating diet very well Some mild back pain otherwise no issues Reason For Visit: ENCEPHALOPATHY Physical Exam Vital Signs: Temp Pulse Resp BP Pulse Ox 97.5 F 79 16 111/66 94 08/24/18 07:59 08/24/18 07:59 08/24/18 07:59 08/24/18 07:59 08/24/18 07:59 Intake & Output 08/23/18 08/24/18 08/25/18 06:59 06:59 06:59 Intake Total 440 Balance 440 Weight 163 lb 9.328 oz General appearance: PRESENT: no acute distress, well-developed, well-nourished Head exam: PRESENT: atraumatic, normocephalic Eye exam: PRESENT: conjunctiva pink, EOMI, PERRLA. ABSENT: scleral icterus Ear exam: PRESENT: normal external ear exam Mouth exam: PRESENT: moist, tongue midline Neck exam: ABSENT: carotid bruit, JVD, lymphadenopathy, thyromegaly Respiratory exam: PRESENT: clear to auscultation kain. ABSENT: rales, rhonchi, wheezes Cardiovascular exam: PRESENT: RRR. ABSENT: diastolic murmur, rubs, systolic murmur Pulses: PRESENT: normal dorsalis pedis pul Vascular exam: PRESENT: normal capillary refill GI/Abdominal exam: PRESENT: normal bowel sounds, soft. ABSENT: distended, guarding, mass, organolmegaly, rebound, tenderness Rectal exam: PRESENT: deferred Extremities exam: PRESENT: full ROM. ABSENT: calf tenderness, clubbing, pedal edema Neurological exam: PRESENT: alert, awake, oriented to person, oriented to place , oriented to time, oriented to situation, CN II-XII grossly intact. ABSENT: motor sensory deficit Psychiatric exam: PRESENT: appropriate affect, normal mood. ABSENT: homicidal ideation, suicidal ideation Results Impressions: Chest X-Ray 08/22/18 15:00 IMPRESSION: RIGHT INFRAHILAR MASS, UNCHANGED. NO ACUTE RADIOGRAPHIC FINDING IN THE CHEST. Head CT 08/22/18 15:00 IMPRESSION: No significant interval change as compared to the previous studies. The previously described sellar and suprasellar mass is again identified. No other significant intracranial abnormalities were identified. Other findings as noted above. EVIDENCE OF ACUTE STROKE: NO. Assessment & Plan - Diagnosis (1) Acute encephalopathy Is this a current diagnosis for this admission?: Yes Plan: Resolved (2) Disruptive behavior Is this a current diagnosis for this admission?: Yes Plan: Resolved Started on Celexa per psychiatry recommendations (3) Altered mental status Is this a current diagnosis for this admission?: Yes Plan: Solved (4) Brain mass Is this a current diagnosis for this admission?: Yes Plan: Continue dexamethasone (5) Lung cancer metastatic to bone Is this a current diagnosis for this admission?: Yes Plan: Will need biopsy Discussed with Dr. Ramsay yesterday (6) Hypothyroidism Is this a current diagnosis for this admission?: Yes Plan: Continue levothyroxine (7) Hypertension Is this a current diagnosis for this admission?: Yes Plan: Continue amlodipine
[2018-08-24] MEDS: ONDANSETRON 4 MG TAB.RAPDIS PO PRN (13:00)
--- NOTE | 2018-08-24 14:57 | PDOC PROGRESS REPORT ---
Subjective Progress Note for:: 08/24/18 Subjective:: Patient states that she is still nauseated. She denies any headache. She has some back pain. She believes the pain meds are working well. Family does not report increased confusion from yesterday. ROS: No chest pain. No dyspnea. + nausea. Reason For Visit: ENCEPHALOPATHY Physical Exam Vital Signs: Temp Pulse Resp BP Pulse Ox 97.6 F 86 16 103/58 L 97 08/24/18 11:34 08/24/18 11:34 08/24/18 11:34 08/24/18 11:34 08/24/18 11:34 Intake & Output 08/23/18 08/24/18 08/25/18 06:59 06:59 06:59 Intake Total 440 Balance 440 Weight 74.2 kg 74.2 kg General appearance: PRESENT: no acute distress, well-developed, well-nourished Exam: 47 year old female lying bed with family at bedside. Head exam: PRESENT: atraumatic Respiratory exam: PRESENT: clear to auscultation kain, unlabored Cardiovascular exam: PRESENT: RRR GI/Abdominal exam: PRESENT: normal bowel sounds, soft. ABSENT: tenderness Extremities exam: ABSENT: pedal edema Neurological exam: PRESENT: alert, awake Psychiatric exam: PRESENT: appropriate affect, other - Able to answer questions appropriately today. Skin exam: PRESENT: normal color Results Impressions: Chest X-Ray 08/22/18 15:00 IMPRESSION: RIGHT INFRAHILAR MASS, UNCHANGED. NO ACUTE RADIOGRAPHIC FINDING IN THE CHEST. Head CT 08/22/18 15:00 IMPRESSION: No significant interval change as compared to the previous studies. The previously described sellar and suprasellar mass is again identified. No other significant intracranial abnormalities were identified. Other findings as noted above. EVIDENCE OF ACUTE STROKE: NO. Assessment & Plan - Diagnosis (1) Acute encephalopathy Is this a current diagnosis for this admission?: Yes Plan: Improved today. Mostly likely due to mass in brain. She was started on low- dose dexamethasone. I will continue this at 4 mg BID for now. It has not seemed to increase her agitation. (2) Brain mass Is this a current diagnosis for this admission?: Yes Plan: Thought to be malignant, but pathology has not yet been established. (3) Lung cancer metastatic to bone Is this a current diagnosis for this admission?: Yes Plan: Clinically, this appears to be the case. However, no pathology has been obtained thus far. Dr. Howell has been consulted for bronchoscopy and tissue diagnosis. I have explained to the family that this must be obtained before any treatment can begin. Also should consider consulting Dr. Haile on Sunday for consideration of brain radiation therapy. - Plan Summary Plan Summary: Pain appears to be adequately controlled. I will continue to follow her over the weekend and Dr. Ramsay will return on Sunday.
[2018-08-24] MEDS: DEXAMETHASONE 4 MG TABLET PO SCH (17:24)
[2018-08-24] MEDS: LORAZEPAM 0.5 MG TABLET PO PRN (17:24)
[2018-08-25] MEDS: LEVOTHYROXINE SODIUM 0.05 MG TABLET PO SCH (05:04)
[2018-08-25] MEDS: CYCLOBENZAPRINE HCL 10 MG TABLET PO SCH ×3 (05:04→21:16)
[2018-08-25] MEDS: LANSOPRAZOLE 30 MG TAB.RAP.DR PO SCH (07:40)
[2018-08-25] MEDS: ONDANSETRON 4 MG TAB.RAPDIS PO PRN (07:40)
[2018-08-25] MEDS: LORAZEPAM 0.5 MG TABLET PO PRN (07:40)
[2018-08-25 07:51] LABS: ABSOLUTE LYMPHOCYTES (AUTO) 0.6 10^3/uL (0.5-4.7); ABSOLUTE MONOCYTES (AUTO) 0.7 10^3/uL (0.1-1.4); ABSOLUTE NEUT (AUTO) 8.7 10^3/uL (1.7-8.2); BASOPHILS % (AUTO) 0.1 % (0-2); EOSINOPHILS % (AUTO) 0.1 % (0-6); HEMATOCRIT 37.9 % (36.0-47.0); MEAN CORPUSCULAR HEMOGLOBIN 30.8 pg (27.0-33.4); MEAN CORPUSCULAR HGB CONC 34.4 g/dL (32.0-36.0); MEAN CORPUSCULAR VOLUME 90 fl (80-97); MONOCYTES % (AUTO) 6.7 % (3-13); PLATELET COUNT 311 10^3/uL (150-450); RED BLOOD COUNT 4.23 10^6/uL (3.72-5.28); RED CELL DISTRIBUTION WIDTH 16.3 % (11.5-14.0); SEGMENTED NEUTROPHILS % (AUTO) 87.1 % (42-78); TOTAL CELLS COUNTED % (AUTO) 100 %
[2018-08-25 07:53] LABS: INTERNATIONAL RATION (INR) 0.91; PROTHROMBIN TIME 12.7 SEC (11.4-15.4)
[2018-08-25 08:17] LABS: ALANINE AMINOTRANSFERASE 20 U/L (9-52); ALBUMIN 3.9 g/dL (3.5-5.0); ALKALINE PHOSPHATASE 72 U/L (38-126); ANION GAP 7 (5-19); ASPARTATE AMINO TRANSFERASE 32 U/L (14-36); BILIRUBIN,DIRECT 0.5 mg/dL (0.0-0.4); BILIRUBIN,TOTAL 0.7 mg/dL (0.2-1.3); BLOOD UREA NITROGEN 5 mg/dL (7-20); CALCIUM 9.3 mg/dL (8.4-10.2); CARBON DIOXIDE 33 mmol/L (22-30); CHLORIDE 98 mmol/L (98-107); GLUCOSE 119 mg/dL (75-110); POTASSIUM 4.4 mmol/L (3.6-5.0); SODIUM 138.1 mmol/L (137-145)
--- NOTE | 2018-08-25 08:30 | PDOC PROGRESS REPORT ---
Subjective Progress Note for:: 08/25/18 Subjective:: Patient demonstrates some bizarre behavior She tells me that she has some back pain Tolerating diet Dexamethasone dose increased by oncology Reason For Visit: ENCEPHALOPATHY Physical Exam Vital Signs: Temp Pulse Resp BP Pulse Ox 97.9 F 78 20 145/77 H 99 08/25/18 07:35 08/25/18 07:35 08/25/18 07:35 08/25/18 07:35 08/25/18 07:35 Intake & Output 08/24/18 08/25/18 08/26/18 06:59 06:59 06:59 Intake Total 440 1479 Balance 440 1479 Weight 163 lb 9.328 oz 165 lb 9.074 oz General appearance: PRESENT: no acute distress, cooperative Head exam: PRESENT: atraumatic, normocephalic Eye exam: PRESENT: conjunctiva pink. ABSENT: conjunctival injection Ear exam: PRESENT: normal external ear exam Mouth exam: PRESENT: moist, tongue midline Neck exam: ABSENT: carotid bruit, JVD, lymphadenopathy, thyromegaly Respiratory exam: PRESENT: clear to auscultation kain. ABSENT: rales, rhonchi, wheezes Cardiovascular exam: PRESENT: RRR. ABSENT: diastolic murmur, rubs, systolic murmur GI/Abdominal exam: PRESENT: normal bowel sounds, soft. ABSENT: distended, guarding, mass, organolmegaly, rebound, tenderness Rectal exam: PRESENT: deferred Neurological exam: PRESENT: alert, awake. ABSENT: motor sensory deficit Psychiatric exam: PRESENT: anxious Results Laboratory Results: 08/25/18 06:50 08/25/18 06:50 08/25/18 08/25/18 06:50 06:50 WBC 10.0 RBC 4.23 Hgb 13.0 Hct 37.9 MCV 90 MCH 30.8 MCHC 34.4 RDW 16.3 H Plt Count 311 Seg Neutrophils % 87.1 H Lymphocytes % 6.0 L Monocytes % 6.7 Eosinophils % 0.1 Basophils % 0.1 Absolute Neutrophils 8.7 H Absolute Lymphocytes 0.6 Absolute Monocytes 0.7 Absolute Eosinophils 0.0 Absolute Basophils 0.0 Sodium 138.1 Potassium 4.4 Chloride 98 Carbon Dioxide 33 H Anion Gap 7 BUN 5 L Creatinine 0.71 Est GFR ( Amer) > 60 Est GFR (Non-Af Amer) > 60 Glucose 119 H Calcium 9.3 Total Bilirubin 0.7 AST 32 ALT 20 Alkaline Phosphatase 72 Total Protein 7.0 Albumin 3.9 Impressions: Chest X-Ray 08/22/18 15:00 IMPRESSION: RIGHT INFRAHILAR MASS, UNCHANGED. NO ACUTE RADIOGRAPHIC FINDING IN THE CHEST. Head CT 08/22/18 15:00 IMPRESSION: No significant interval change as compared to the previous studies. The previously described sellar and suprasellar mass is again identified. No other significant intracranial abnormalities were identified. Other findings as noted above. EVIDENCE OF ACUTE STROKE: NO. Assessment & Plan - Diagnosis (1) Acute encephalopathy Is this a current diagnosis for this admission?: Yes Plan: Most likely due to brain mass Initially improved but now she is more agitated Continue steroids and observe (2) Disruptive behavior Is this a current diagnosis for this admission?: Yes (3) Altered mental status Is this a current diagnosis for this admission?: Yes (4) Brain mass Is this a current diagnosis for this admission?: Yes Plan: Oncology increase her dose of dexamethasone (5) Lung cancer metastatic to bone Is this a current diagnosis for this admission?: Yes Plan: Plans for biopsy by oncology (6) Hypothyroidism Is this a current diagnosis for this admission?: Yes Plan: We will continue levothyroxine (7) Hypertension Is this a current diagnosis for this admission?: Yes Plan: Continue amlodipine, monitor blood pressure
[2018-08-25] MEDS: CITALOPRAM HYDROBROMIDE 20 MG TABLET PO SCH (11:06)
[2018-08-25] MEDS: AMLODIPINE BESYLATE 5 MG TABLET PO SCH (11:06)
[2018-08-25] MEDS: ENOXAPARIN SODIUM INJ 30 MG/0.3 ML DISP.SYRIN SUBCUT SCH (11:07)
[2018-08-25] MEDS: DEXAMETHASONE 4 MG TABLET PO SCH ×2 (11:07→17:44)
[2018-08-26] MEDS: CYCLOBENZAPRINE HCL 10 MG TABLET PO SCH ×3 (05:01→21:34)
[2018-08-26] MEDS: LEVOTHYROXINE SODIUM 0.05 MG TABLET PO SCH (05:01)
[2018-08-26] MEDS ORDERED: DEXTROSE 40% GEL 15 GM TUBE PO PRN ×2 (07:46)
[2018-08-26] MEDS ORDERED: GLUCAGON,HUMAN RECOMB 1 MG INJ SUBCUT PRN (07:46)
[2018-08-26] MEDS ORDERED: DEXTROSE 50%-WATER 25 GM/50 ML DISP.SYRIN IV PRN ×2 (07:46)
--- NOTE | 2018-08-26 08:04 | PDOC PROGRESS REPORT ---
Subjective Progress Note for:: 08/26/18 Subjective:: Today discussed w/ pt and nursing, pt doing a little better, not having as much pain, bronchoscopy planned today at 1pm per Dr. Howell, I made pt NPO and held lovenox. She is getting up to restroom w/ 1 person assist as of now. Does get confused at times Reason For Visit: ENCEPHALOPATHY Physical Exam Vital Signs: Temp Pulse Resp BP Pulse Ox 97.6 F 90 16 143/72 H 98 08/25/18 23:56 08/25/18 23:56 08/25/18 23:56 08/25/18 23:56 08/25/18 23:56 Intake & Output 08/25/18 08/26/18 08/27/18 06:59 06:59 06:59 Intake Total 1479 1460 Balance 1479 1460 Weight 75.1 kg 74.3 kg General appearance: PRESENT: no acute distress, well-developed, well-nourished Head exam: PRESENT: atraumatic, normocephalic Eye exam: PRESENT: conjunctiva pink, EOMI, PERRLA. ABSENT: scleral icterus Ear exam: PRESENT: normal external ear exam Mouth exam: PRESENT: moist, tongue midline Neck exam: ABSENT: carotid bruit, JVD, lymphadenopathy, thyromegaly Respiratory exam: PRESENT: clear to auscultation kain. ABSENT: rales, rhonchi, wheezes Cardiovascular exam: PRESENT: RRR. ABSENT: diastolic murmur, rubs, systolic murmur Pulses: PRESENT: normal dorsalis pedis pul Vascular exam: PRESENT: normal capillary refill GI/Abdominal exam: PRESENT: normal bowel sounds, soft. ABSENT: distended, guarding, mass, organolmegaly, rebound, tenderness Rectal exam: PRESENT: deferred Extremities exam: PRESENT: full ROM. ABSENT: calf tenderness, clubbing, pedal edema Neurological exam: PRESENT: alert, awake, oriented to person, oriented to place , oriented to time, oriented to situation, CN II-XII grossly intact. ABSENT: motor sensory deficit Psychiatric exam: PRESENT: appropriate affect, normal mood. ABSENT: homicidal ideation, suicidal ideation Skin exam: PRESENT: dry, intact, warm. ABSENT: cyanosis, rash Results Laboratory Results: 08/25/18 06:50 08/25/18 06:50 08/25/18 06:50 Sodium 138.1 Potassium 4.4 Chloride 98 Carbon Dioxide 33 H Anion Gap 7 BUN 5 L Creatinine 0.71 Est GFR ( Amer) > 60 Est GFR (Non-Af Amer) > 60 Glucose 119 H Calcium 9.3 Total Bilirubin 0.7 AST 32 ALT 20 Alkaline Phosphatase 72 Total Protein 7.0 Albumin 3.9 Impressions: Chest X-Ray 08/22/18 15:00 IMPRESSION: RIGHT INFRAHILAR MASS, UNCHANGED. NO ACUTE RADIOGRAPHIC FINDING IN THE CHEST. Head CT 08/22/18 15:00 IMPRESSION: No significant interval change as compared to the previous studies. The previously described sellar and suprasellar mass is again identified. No other significant intracranial abnormalities were identified. Other findings as noted above. EVIDENCE OF ACUTE STROKE: NO. Assessment & Plan - Diagnosis (1) Lung cancer metastatic to bone Is this a current diagnosis for this admission?: Yes Plan: Bronch planned today per Dr. Howell (2) Brain mass Is this a current diagnosis for this admission?: Yes Plan: Would consider xrt possibly before chemo but we will see what bronch shows, con' t dex (3) Pain, neoplasm-related Is this a current diagnosis for this admission?: Yes Plan: Improved, cont current regimen - Time Time Spent with patient: 35 or more minutes Disposition: Called son and left message to discuss. Nursing and Dr. Howell will call family also this am. - Inpatient Certification Based on my medical assessment, after consideration of the patient's comorbidities, presenting symptoms, or acuity I expect that the services needed warrant INPATIENT care.: Yes I certify that my determination is in accordance with my understanding of Medicare's requirements for reasonable and necessary INPATIENT services [42 CFR 412.3e].: Yes Medical Necessity: Need for Pain Control, Need for Surgery, Risk of Complication if Not Cared For in Hospital
--- NOTE | 2018-08-26 08:28 | PDOC PROGRESS REPORT ---
Subjective Progress Note for:: 08/26/18 Subjective:: Patient is doing good She appears comfortable although she complains of intermittent upper back pain but apparently she does not need and did not request any pain medications for that She is scheduled for bronchoscopy later today Reason For Visit: ENCEPHALOPATHY Physical Exam Vital Signs: Temp Pulse Resp BP Pulse Ox 97.6 F 83 14 132/67 H 95 08/26/18 07:29 08/26/18 07:29 08/26/18 07:29 08/26/18 07:29 08/26/18 07:29 Intake & Output 08/25/18 08/26/18 08/27/18 06:59 06:59 06:59 Intake Total 1479 1460 Balance 1479 1460 Weight 165 lb 9.074 oz 163 lb 12.855 oz General appearance: PRESENT: no acute distress, cooperative Head exam: PRESENT: atraumatic, normocephalic Eye exam: PRESENT: conjunctiva pink. ABSENT: conjunctival injection Ear exam: PRESENT: normal external ear exam Mouth exam: PRESENT: moist, tongue midline Neck exam: ABSENT: tracheostomy Respiratory exam: PRESENT: other - No audible wheezing. ABSENT: accessory muscle use Musculoskeletal exam: PRESENT: ambulatory Neurological exam: PRESENT: alert, awake. ABSENT: aphasic Results Laboratory Results: 08/25/18 06:50 08/25/18 06:50 Impressions: Chest X-Ray 08/22/18 15:00 IMPRESSION: RIGHT INFRAHILAR MASS, UNCHANGED. NO ACUTE RADIOGRAPHIC FINDING IN THE CHEST. Head CT 08/22/18 15:00 IMPRESSION: No significant interval change as compared to the previous studies. The previously described sellar and suprasellar mass is again identified. No other significant intracranial abnormalities were identified. Other findings as noted above. EVIDENCE OF ACUTE STROKE: NO. Assessment & Plan - Diagnosis (1) Acute encephalopathy Is this a current diagnosis for this admission?: Yes Plan: Most likely due to brain mass Continue steroids (2) Disruptive behavior Is this a current diagnosis for this admission?: Yes Plan: Resolved on Celexa per psychiatry recommendations (3) Altered mental status Is this a current diagnosis for this admission?: Yes Plan: resolved (4) Brain mass Is this a current diagnosis for this admission?: Yes Plan: Continue dexamethasone (5) Lung cancer metastatic to bone Is this a current diagnosis for this admission?: Yes Plan: Scheduled for bronchoscopy with biopsy later today (6) Hypothyroidism Is this a current diagnosis for this admission?: Yes Plan: continue levothyroxine (7) Hypertension Is this a current diagnosis for this admission?: Yes Plan: Will continue amlodipine, monitor blood pressure
[2018-08-26] MEDS: LANSOPRAZOLE 30 MG TAB.RAP.DR PO SCH (08:36)
--- NOTE | 2018-08-26 10:12 | PDOC CONSULTATION ---
Consultation Consult Date: 08/23/18 Attending physician:: LUCRETIA HYATT Consult reason:: lung mass History of Present Illness Admission Date/PCP: 08/23/18 09:20 History of Present Illness: EBENEZER HEBERT is a 72 year old female,recently admitted for back pain she returns today for the same. She has metastatic disease in her bones as well as the brain she has a right lung mass she has increasing confusion no shortness of breath at rest but does have dips and exertion no cough no hemoptysis ,PPD status unknown no history of chronic lung disease as a child or adolescent admits to smoking a half a pack a day for 23 years no significant occupational exposure to potential respiratory type toxins no pets no recent travel no angina -like chest pain sleeps on 2 pillows no PND frequent nocturnal cough no edema Past Medical History Cardiac Medical History: Reports: Hypertension Pulmonary Medical History: Reports: Chronic Obstructive Pulmonary Disease (COPD) Endocrine Medical History: Reports: Hypothyroidism Malignancy Medical History: Reports: Bone Cancer GI Medical History: Reports: Gastroesophageal Reflux Disease Psychiatric Medical History: Denies: Depression Past Surgical History Past Surgical History: Reports: None Social History Information Source: Patient, Relative, [facility] Records Smoking Status: Former Smoker Cigarettes Packs Per Day: 1 Cigars Per Day: 0 Pipes Per Day: 0 Number of Years Smokin Last Time Smoked: 11/26/2007 Passive smoke exposure as: Both Frequency of Alcohol Use: None Hx Recreational Drug Use: No Drugs: None Hx Prescription Drug Abuse: No Do you have pets?: No Have you had any respiratory illnesses as a child?: No Have you been exposed to any sick contacts recently?: No Have you had any recent respiratory illnesses?: No Have you travelled outside of [place] in the past 12 months?: No - Advance Directive Resuscitation Status: Do Not Resuscitate Family History Family History: DM, Hyperlipidemia, Hypertension, Thyroid Disfunction Parental Family History Reviewed: Yes Children Family History Reviewed: Yes Sibling(s) Family History Reviewed.: Yes Medication/Allergy Home Medications: Amlodipine Besylate [Norvasc 5 mg Tablet] 5 mg PO DAILY 08/23/18 Cyclobenzaprine HCl [Flexeril 5 mg Tablet] 5 mg PO Q8 08/23/18 Dexamethasone [Decadron] 0.75 mg PO DAILY 08/23/18 Ibuprofen [Motrin 600 mg Tablet] 600 mg PO Q6HP PRN 08/23/18 Levothyroxine Sodium [Synthroid 0.05 mg Tablet] 0.05 mg PO Q6AM 08/23/18 Omeprazole 40 mg PO QAM 08/23/18 Ondansetron [Ondansetron Odt] 8 mg PO Q6HP PRN 08/23/18 Oxycodone HCl/Acetaminophen [Endocet 5-325 Tablet] 1 tab PO Q6HP PRN 08/23/18 Allergies/Adverse Reactions: Penicillins Allergy (Verified 08/23/18 19:51) Unknown reaction Review of Systems Constitutional: PRESENT: headache(s). ABSENT: chills, fever(s) Eyes: ABSENT: visual disturbances Ears: ABSENT: hearing changes Nose, Mouth, and Throat: ABSENT: sore throat Cardiovascular: ABSENT: dyspnea on exertion, edema, orthropnea, palpitations Respiratory: ABSENT: dyspnea, hemoptysis Gastrointestinal: ABSENT: coffee ground emesis, hematemesis, hematochezia, melena Genitourinary: ABSENT: dysuria, hematuria Musculoskeletal: ABSENT: deformity, joint swelling Integumentary: ABSENT: lesions, pruritus, rash Neurological: PRESENT: confusion, memory loss. ABSENT: focal weakness, lack of coordination, numbness Psychiatric: ABSENT: homidical ideation, suicidal ideation Endocrine: ABSENT: cold intolerance, heat intolerance, polydipsia, polyuria Hematologic/Lymphatic: PRESENT: easy bruising Allergic/Immunologic: PRESENT: seasonal rhinorrhea Physical Exam Vital Signs: Temp Pulse Resp BP Pulse Ox 97.6 F 83 14 132/67 H 95 08/26/18 07:29 08/26/18 07:29 08/26/18 07:29 08/26/18 07:29 08/26/18 07:29 Intake & Output 08/25/18 08/26/18 08/27/18 06:59 06:59 06:59 Intake Total 1479 1460 Balance 1479 1460 Weight 75.1 kg 74.3 kg General appearance: PRESENT: no acute distress, disheveled Head exam: PRESENT: atraumatic, normocephalic Eye exam: PRESENT: conjunctiva pale, EOMI, PERRLA. ABSENT: nystagmus, scleral icterus Mouth exam: PRESENT: dry mucosa, neck supple, tongue midline Neck exam: ABSENT: carotid bruit, JVD, lymphadenopathy, thyromegaly, tracheal deviation, tracheostomy Respiratory exam: PRESENT: decreased breath sounds, prolonged expiratory phas, rhonchi, unlabored. ABSENT: rales, retraction, stridor Cardiovascular exam: PRESENT: RRR, +S1, +S2 Pulses: PRESENT: normal radial pulses GI/Abdominal exam: PRESENT: soft. ABSENT: tenderness Extremities exam: ABSENT: calf tenderness, clubbing, joint swelling Musculoskeletal exam: ABSENT: deformity, dislocation Neurological exam: PRESENT: awake Psychiatric exam: PRESENT: flat affect Skin exam: PRESENT: dry, warm Results Laboratory Results: 08/25/18 06:50 08/25/18 06:50 Impressions: Chest X-Ray 08/22/18 15:00 IMPRESSION: RIGHT INFRAHILAR MASS, UNCHANGED. NO ACUTE RADIOGRAPHIC FINDING IN THE CHEST. Head CT 08/22/18 15:00 IMPRESSION: No significant interval change as compared to the previous studies. The previously described sellar and suprasellar mass is again identified. No other significant intracranial abnormalities were identified. Other findings as noted above. EVIDENCE OF ACUTE STROKE: NO. Assessment & Plan - Diagnosis (1) Hypertension Is this a current diagnosis for this admission?: Yes (2) Lung cancer metastatic to bone Is this a current diagnosis for this admission?: Yes Plan: Bronchoscopy scheduled for August 26 at 1300 hrs.
[2018-08-26] MEDS: DEXAMETHASONE 4 MG TABLET PO SCH ×2 (10:33→17:30)
[2018-08-26] MEDS ORDERED: PROPOFOL INJ 200 MG/20 ML VIAL IV ONE (11:39)
[2018-08-26] MEDS ORDERED: MIDAZOLAM 2 MG/2 ML INJ ONE (11:39)
[2018-08-26] MEDS ORDERED: ONDANSETRON HCL INJ/PF 4 MG/2 ML SDV ONE (11:39)
[2018-08-26] MEDS ORDERED: FENTANYL CITRATE INJ/PF 100 MCG/2 ML AMPUL ONE (11:39)
[2018-08-26] MEDS ORDERED: MEPERIDINE HCL/PF INJ 25 MG/1 ML DISP.SYRIN IV PRN (12:46)
[2018-08-26] MEDS ORDERED: PROMETHAZINE HCL INJ 25 MG/1 ML VIAL IV PRN ×2 (12:46)
[2018-08-26] MEDS ORDERED: FENTANYL CITRATE INJ/PF 100 MCG/2 ML AMPUL IV PRN ×3 (12:46)
[2018-08-26] MEDS ORDERED: DIPHENHYDRAMINE HCL 50 MG/ML VIAL IV PRN (12:46)
[2018-08-26] MEDS ORDERED: ONDANSETRON HCL INJ/PF 4 MG/2 ML SDV IV PRN (12:46)
[2018-08-26] MEDS ORDERED: MORPHINE SULFATE 10 MG/ML INJ IV PRN (12:46)
[2018-08-26] MEDS: EPINEPHRINE INJ 1 MG/10 ML DISP.SYRIN ONE ×3 (13:36→13:45)
[2018-08-26] MEDS ORDERED: EPINEPHRINE INJ/PF 1 MG/1 ML AMPULE ONE (13:38)
[2018-08-26] MEDS ORDERED: SUCCINYLCHOLINE CHLORIDE INJ 200 MG/10 ML VIAL ONE (14:02)
--- NOTE | 2018-08-26 14:51 | RADIOLOGY REPORT (SQ) ---
EXAM DESCRIPTION: CHEST SINGLE VIEW COMPLETED DATE/TIME: 08/26/2018 2:40 pm REASON FOR STUDY: S/P Lung Biospy COMPARISON: 08/22/2018 EXAM PARAMETERS: NUMBER OF VIEWS: One view. TECHNIQUE: Single frontal radiographic view of the chest acquired. RADIATION DOSE: NA LIMITATIONS: None. FINDINGS: LUNGS AND PLEURA: Status post lung biopsy. In the right lower lung, patchy diffuse airsp ha disease may represent contusion/hemorrhage related to lung biopsy. No evidence of pneumothorax. The left lung remains clear. No pleural effusion. MEDIASTINUM AND HILAR STRUCTURES: No masses. Contour normal. HEART AND VASCULAR STRUCTURES: Heart normal in size. Normal vasculature. BONES: No acute findings. HARDWARE: None in the chest. OTHER: No other significant finding. IMPRESSION: 1. Status post lung biopsy. Right lower lung patchy diffuse airspace disease may repre sent contusion/ hemorrhage related to lung biopsy. 2. No evidence of pneumothorax. TECHNICAL DOCUMENTATION: JOB ID: [id number] [employer]- All Rights Reserved Reading location - IP/workstation name: [email or web address]
--- NOTE | 2018-08-26 14:58 | Operative Report ---
Operative Report DATE OF SURGERY: 08/26/18 Operative Report: She is kept n.p.o. 12 hours prior to the procedure taken to the preop area where consents were reviewed and signed and and IV access was secured and patient taken to the brought suite where she was intubated with a #8 scope per anesthesia then using a T size Olympus scope tracheobronchial tree was explored there is some splaying of the jennifer there were no abnormalities of the left mainstem bronchus left upper lobe lingula left lower lobe. There are no abnormalities of the right mainstem bronchus right upper lobe they were multiple corrugated masses obscuring the right lower lobe and abutting the subsegments of the right middle lobe mass with highly friable and began to bleed prior to her by evaluation transbronchial biopsies were taken of the area as well as lavage the patient tolerated procedure well postprocedure SaO2 was 96 % and post procedure chest x-ray is pending at this time lavage fluid as well as tissue has been sent to the lab for appropriate cultures and studies PREOPERATIVE DIAGNOSIS: Right lung mass POSTOPERATIVE DIAGNOSIS: Same OPERATION: Fiberoptic bronchoscopy with bronchoalveolar lavage and transbronchial biopsy ANESTHESIA: GA TISSUE REMOVED OR ALTERED: Bronchoalveolar lavage right lower lobe transbronchial biopsies right lower lobe COMPLICATIONS: None ESTIMATED BLOOD LOSS: 3 mL's
[2018-08-26] MEDS: CITALOPRAM HYDROBROMIDE 20 MG TABLET PO SCH (15:35)
[2018-08-26] MEDS: AMLODIPINE BESYLATE 5 MG TABLET PO SCH (15:35)
[2018-08-26 15:39] LABS: FLUID APPEARANCE CLOUDY; FLUID COLOR RED; FLUID SOURCE LUNG; FLUID TYPE BRONCHIAL WASH; FLUID VISCOSITY HIGHLY VISCOUS
[2018-08-26] MEDS ORDERED: SODIUM CHLORIDE NASAL SPRAY 44 ML NASL PRN (18:21)
[2018-08-27] MEDS: LEVOTHYROXINE SODIUM 0.05 MG TABLET PO SCH (05:02)
[2018-08-27] MEDS: CYCLOBENZAPRINE HCL 10 MG TABLET PO SCH ×2 (05:02→13:25)
[2018-08-27] MEDS: LANSOPRAZOLE 30 MG TAB.RAP.DR PO SCH (08:29)
[2018-08-27] MEDS: OXYCODONE-ACETAMINOPHEN 5-325 MG TABLET PO PRN (09:21)
[2018-08-27] MEDS: AMLODIPINE BESYLATE 5 MG TABLET PO SCH (10:40)
[2018-08-27] MEDS: DEXAMETHASONE 4 MG TABLET PO SCH ×2 (10:40→17:04)
[2018-08-27] MEDS: CITALOPRAM HYDROBROMIDE 20 MG TABLET PO SCH (10:40)
--- NOTE | 2018-08-27 11:21 | PDOC PROGRESS REPORT ---
Subjective Progress Note for:: 08/27/18 Subjective:: No acute events overnight, pain better controlled. Spending most of time in bed. Had long discussion w/ pt and daughter, pt does not seem to want to pursue any treatment as of now. Discussed consideration of comfort care, family does not feel pt maybe able to be cared for at home. Reason For Visit: ENCEPHALOPATHY Physical Exam Vital Signs: Temp Pulse Resp BP Pulse Ox 97.7 F 79 15 137/74 H 97 08/27/18 08:00 08/27/18 08:00 08/27/18 08:00 08/27/18 08:00 08/27/18 08:00 Intake & Output 08/26/18 08/27/18 08/28/18 06:59 06:59 06:59 Intake Total 1460 1350 Output Total 2 Balance 1460 1348 Weight 74.3 kg 74.9 kg General appearance: PRESENT: no acute distress, well-developed, well-nourished Head exam: PRESENT: atraumatic, normocephalic Eye exam: PRESENT: conjunctiva pink, EOMI, PERRLA. ABSENT: scleral icterus Ear exam: PRESENT: normal external ear exam Mouth exam: PRESENT: moist, tongue midline Neck exam: ABSENT: carotid bruit, JVD, lymphadenopathy, thyromegaly Respiratory exam: PRESENT: clear to auscultation kain. ABSENT: rales, rhonchi, wheezes Cardiovascular exam: PRESENT: RRR. ABSENT: diastolic murmur, rubs, systolic murmur Pulses: PRESENT: normal dorsalis pedis pul Vascular exam: PRESENT: normal capillary refill GI/Abdominal exam: PRESENT: normal bowel sounds, soft. ABSENT: distended, guarding, mass, organolmegaly, rebound, tenderness Rectal exam: PRESENT: deferred Extremities exam: PRESENT: full ROM. ABSENT: calf tenderness, clubbing, pedal edema Neurological exam: PRESENT: alert, awake, oriented to person, oriented to place , oriented to time, oriented to situation, CN II-XII grossly intact. ABSENT: motor sensory deficit Psychiatric exam: PRESENT: appropriate affect, normal mood. ABSENT: homicidal ideation, suicidal ideation Skin exam: PRESENT: dry, intact, warm. ABSENT: cyanosis, rash Results Laboratory Results: 08/25/18 06:50 08/25/18 06:50 08/26/18 13:32 Fluid Type BRONCHIAL WASH Fluid Source LUNG Fluid Color RED Fluid Appearance CLOUDY Fluid Viscosity HIGHLY VISCOUS Fluid WBC 113 Fluid RBC [id number] Impressions: Head CT 08/22/18 15:00 IMPRESSION: No significant interval change as compared to the previous studies. The previously described sellar and suprasellar mass is again identified. No other significant intracranial abnormalities were identified. Other findings as noted above. EVIDENCE OF ACUTE STROKE: NO. Chest X-Ray 08/26/18 13:20 IMPRESSION: 1. Status post lung biopsy. Right lower lung patchy diffuse airspace disease may represent contusion/ hemorrhage related to lung biopsy. 2. No evidence of pneumothorax. Assessment & Plan - Diagnosis (1) Lung cancer metastatic to bone Is this a current diagnosis for this admission?: Yes Plan: Awaiting final results of lung bx done yesterday (2) Brain mass Is this a current diagnosis for this admission?: Yes Plan: Will cont steroids but hold on further tx for now, family is discussing next steps (3) Pain, neoplasm-related Is this a current diagnosis for this admission?: Yes Plan: Cont current regimen - Time Time Spent with patient: 35 or more minutes Disposition: I had long discussion w/ pt and family, asked nursing to have d/c planning call me, asked family to have family discussion about next steps - Inpatient Certification Based on my medical assessment, after consideration of the patient's comorbidities, presenting symptoms, or acuity I expect that the services needed warrant INPATIENT care.: Yes I certify that my determination is in accordance with my understanding of Medicare's requirements for reasonable and necessary INPATIENT services [42 CFR 412.3e].: Yes Medical Necessity: Need for Pain Control, Risk of Complication if Not Cared For in Hospital
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
--- NOTE | 2018-08-27 14:59 | PDOC PROGRESS REPORT ---
Subjective Progress Note for:: 08/27/18 Subjective:: Patient resting but without complaint Reason For Visit: ENCEPHALOPATHY Physical Exam Vital Signs: Temp Pulse Resp BP Pulse Ox 97.7 F 79 15 137/74 H 97 08/27/18 12:00 08/27/18 12:00 08/27/18 12:00 08/27/18 12:00 08/27/18 12:00 Intake & Output 08/26/18 08/27/18 08/28/18 06:59 06:59 06:59 Intake Total 1460 1350 562 Output Total 2 Balance 1460 1348 562 Weight 74.3 kg 74.9 kg General appearance: PRESENT: no acute distress, cooperative, disheveled Head exam: PRESENT: atraumatic, normocephalic Eye exam: PRESENT: conjunctiva pale, EOMI. ABSENT: nystagmus, scleral icterus Mouth exam: PRESENT: dry mucosa, neck supple, tongue midline Neck exam: ABSENT: carotid bruit, JVD, lymphadenopathy, thyromegaly, tracheal deviation, tracheostomy Respiratory exam: PRESENT: decreased breath sounds, prolonged expiratory phas, rales, rhonchi, unlabored. ABSENT: retraction, stridor Cardiovascular exam: PRESENT: RRR, +S1, +S2 Pulses: PRESENT: normal radial pulses GI/Abdominal exam: PRESENT: soft. ABSENT: tenderness Extremities exam: ABSENT: calf tenderness, clubbing, joint swelling Musculoskeletal exam: ABSENT: deformity, dislocation Neurological exam: PRESENT: alert, awake Psychiatric exam: PRESENT: normal mood Skin exam: PRESENT: dry, warm Results Laboratory Results: 08/25/18 06:50 08/25/18 06:50 08/26/18 13:32 Fluid Type BRONCHIAL WASH Fluid Source LUNG Fluid Color RED Fluid Appearance CLOUDY Fluid Viscosity HIGHLY VISCOUS Fluid WBC 113 Fluid RBC [id number] Impressions: Head CT 08/22/18 15:00 IMPRESSION: No significant interval change as compared to the previous studies. The previously described sellar and suprasellar mass is again identified. No other significant intracranial abnormalities were identified. Other findings as noted above. EVIDENCE OF ACUTE STROKE: NO. Chest X-Ray 08/26/18 13:20 IMPRESSION: 1. Status post lung biopsy. Right lower lung patchy diffuse airspace disease may represent contusion/ hemorrhage related to lung biopsy. 2. No evidence of pneumothorax. Assessment & Plan - Diagnosis (1) Hypertension Is this a current diagnosis for this admission?: Yes (2) Lung cancer metastatic to bone Is this a current diagnosis for this admission?: Yes Plan: Awaiting pathology report
[2018-08-27 16:29] LABS: HEMATOCRIT 36.2 % (36.0-47.0); HEMOGLOBIN 12.6 g/dL (12.0-15.5); MEAN CORPUSCULAR HGB CONC 34.8 g/dL (32.0-36.0); MEAN CORPUSCULAR VOLUME 89 fl (80-97); PLATELET COUNT 262 10^3/uL (150-450); RED BLOOD COUNT 4.07 10^6/uL (3.72-5.28); RED CELL DISTRIBUTION WIDTH 15.8 % (11.5-14.0); WHITE BLOOD COUNT 14.1 10^3/uL (4.0-10.5)
[2018-08-27 16:52] LABS: ANION GAP 6 (5-19); BLOOD UREA NITROGEN 5 mg/dL (7-20); CALCIUM 9.4 mg/dL (8.4-10.2); CARBON DIOXIDE 34 mmol/L (22-30); CHLORIDE 98 mmol/L (98-107); GLUCOSE 166 mg/dL (75-110); POTASSIUM 4.3 mmol/L (3.6-5.0)
[2018-08-28] MEDS: LEVOTHYROXINE SODIUM 0.05 MG TABLET PO SCH (05:15)
[2018-08-28] MEDS ORDERED: PROMETHAZINE HCL INJ 25 MG/1 ML VIAL IV PRN (08:01)
--- NOTE | 2018-08-28 08:07 | PDOC PROGRESS REPORT ---
Subjective Progress Note for:: 08/28/18 Subjective:: Patient having some nausea this morning, pain still seems to be well controlled. hospital liaison Grace, spoke with family yesterday and are going to meet with him today 2 PM. I received a call from pathology indicating that this is most likely a small cell lung cancer. Reason For Visit: ENCEPHALOPATHY Physical Exam Vital Signs: Temp Pulse Resp BP Pulse Ox 97.7 F 72 16 147/71 H 99 08/28/18 07:40 08/28/18 07:40 08/28/18 07:40 08/28/18 07:40 08/28/18 07:40 Intake & Output 08/27/18 08/28/18 08/29/18 06:59 06:59 06:59 Intake Total 1350 862 Output Total 2 Balance 1348 862 Weight 74.9 kg General appearance: PRESENT: no acute distress, well-developed, well-nourished Head exam: PRESENT: atraumatic, normocephalic Eye exam: PRESENT: conjunctiva pink, EOMI, PERRLA. ABSENT: scleral icterus Ear exam: PRESENT: normal external ear exam Mouth exam: PRESENT: moist, tongue midline Neck exam: ABSENT: carotid bruit, JVD, lymphadenopathy, thyromegaly Respiratory exam: PRESENT: clear to auscultation kain. ABSENT: rales, rhonchi, wheezes Cardiovascular exam: PRESENT: RRR. ABSENT: diastolic murmur, rubs, systolic murmur Pulses: PRESENT: normal dorsalis pedis pul Vascular exam: PRESENT: normal capillary refill GI/Abdominal exam: PRESENT: normal bowel sounds, soft. ABSENT: distended, guarding, mass, organolmegaly, rebound, tenderness Rectal exam: PRESENT: deferred Extremities exam: PRESENT: full ROM. ABSENT: calf tenderness, clubbing, pedal edema Neurological exam: PRESENT: alert, awake, oriented to person, oriented to place , oriented to time, oriented to situation, CN II-XII grossly intact. ABSENT: motor sensory deficit Psychiatric exam: PRESENT: appropriate affect, normal mood. ABSENT: homicidal ideation, suicidal ideation Skin exam: PRESENT: dry, intact, warm. ABSENT: cyanosis, rash Results Laboratory Results: 08/27/18 16:20 08/27/18 16:20 08/27/18 08/27/18 16:20 16:20 WBC 14.1 H RBC 4.07 Hgb 12.6 Hct 36.2 MCV 89 MCH 31.0 MCHC 34.8 RDW 15.8 H Plt Count 262 Sodium 138.0 Potassium 4.3 Chloride 98 Carbon Dioxide 34 H Anion Gap 6 BUN 5 L Creatinine 0.72 Est GFR ( Amer) > 60 Est GFR (Non-Af Amer) > 60 Glucose 166 H Calcium 9.4 Impressions: Head CT 08/22/18 15:00 IMPRESSION: No significant interval change as compared to the previous studies. The previously described sellar and suprasellar mass is again identified. No other significant intracranial abnormalities were identified. Other findings as noted above. EVIDENCE OF ACUTE STROKE: NO. Chest X-Ray 08/26/18 13:20 IMPRESSION: 1. Status post lung biopsy. Right lower lung patchy diffuse airspace disease may represent contusion/ hemorrhage related to lung biopsy. 2. No evidence of pneumothorax. Assessment & Plan - Diagnosis (1) Lung cancer metastatic to bone Is this a current diagnosis for this admission?: Yes Plan: Extensive stage small cell lung cancer, do not patient is candidate for further therapy given weakened status. Recommended hospice. Patient and family are working towards this. Patient notes she has a desire to go home, but family is unsure about caring for her. (2) Brain mass Is this a current diagnosis for this admission?: Yes Plan: Plan to continue with steroids even while on hospice but at present would not recommend whole brain radiation given her weakened status. (3) Pain, neoplasm-related Is this a current diagnosis for this admission?: Yes Plan: Continue with current therapy, add Phenergan for nausea - Time Time Spent with patient: 35 or more minutes
[2018-08-28] MEDS: LANSOPRAZOLE 30 MG TAB.RAP.DR PO SCH (08:29)
[2018-08-28] MEDS: AMLODIPINE BESYLATE 5 MG TABLET PO SCH (09:19)
[2018-08-28] MEDS: DEXAMETHASONE 4 MG TABLET PO SCH ×2 (09:20→17:15)
[2018-08-28] MEDS: CITALOPRAM HYDROBROMIDE 20 MG TABLET PO SCH (09:20)
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
--- NOTE | 2018-08-28 14:03 | PDOC PROGRESS REPORT ---
Subjective Progress Note for:: 08/28/18 Subjective:: Patient resting but without complaint Reason For Visit: ENCEPHALOPATHY Physical Exam Vital Signs: Temp Pulse Resp BP Pulse Ox 97.7 F 72 16 147/71 H 99 08/28/18 07:40 08/28/18 07:40 08/28/18 07:40 08/28/18 07:40 08/28/18 07:40 Intake & Output 08/27/18 08/28/18 08/29/18 06:59 06:59 06:59 Intake Total 1350 862 Output Total 2 Balance 1348 862 Weight 74.9 kg General appearance: PRESENT: no acute distress, cooperative, disheveled, well- developed, well-nourished Head exam: PRESENT: atraumatic, normocephalic Eye exam: PRESENT: conjunctiva pale, EOMI. ABSENT: nystagmus, scleral icterus Mouth exam: PRESENT: dry mucosa, neck supple, tongue midline Neck exam: ABSENT: carotid bruit, JVD, lymphadenopathy, thyromegaly, tracheal deviation, tracheostomy Respiratory exam: PRESENT: decreased breath sounds, prolonged expiratory phas, rhonchi, unlabored. ABSENT: rales, retraction, stridor Cardiovascular exam: PRESENT: RRR, +S1, +S2 Pulses: PRESENT: normal radial pulses GI/Abdominal exam: PRESENT: soft. ABSENT: tenderness Extremities exam: ABSENT: calf tenderness, clubbing, joint swelling Musculoskeletal exam: ABSENT: deformity, dislocation Neurological exam: PRESENT: alert, awake Psychiatric exam: PRESENT: normal mood Skin exam: PRESENT: dry, warm Results Laboratory Results: 08/27/18 16:20 08/27/18 16:20 08/27/18 08/27/18 16:20 16:20 WBC 14.1 H RBC 4.07 Hgb 12.6 Hct 36.2 MCV 89 MCH 31.0 MCHC 34.8 RDW 15.8 H Plt Count 262 Sodium 138.0 Potassium 4.3 Chloride 98 Carbon Dioxide 34 H Anion Gap 6 BUN 5 L Creatinine 0.72 Est GFR ( Amer) > 60 Est GFR (Non-Af Amer) > 60 Glucose 166 H Calcium 9.4 Impressions: Head CT 08/22/18 15:00 IMPRESSION: No significant interval change as compared to the previous studies. The previously described sellar and suprasellar mass is again identified. No other significant intracranial abnormalities were identified. Other findings as noted above. EVIDENCE OF ACUTE STROKE: NO. Chest X-Ray 08/26/18 13:20 IMPRESSION: 1. Status post lung biopsy. Right lower lung patchy diffuse airspace disease may represent contusion/ hemorrhage related to lung biopsy. 2. No evidence of pneumothorax. Assessment & Plan - Diagnosis (1) Hypertension Is this a current diagnosis for this admission?: Yes (2) Lung cancer metastatic to bone Is this a current diagnosis for this admission?: Yes Plan: pathology report;Small cell lung cancer
[2018-08-28] MEDS ORDERED: TUBERCULIN,PURIF.PROT.DERIV. 5 TU/0.1 ML TEST 1 ML VIAL ID ONE (15:00)
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
[2018-08-28 15:51] LABS: HEMATOCRIT 36.9 % (36.0-47.0); HEMOGLOBIN 12.4 g/dL (12.0-15.5); MEAN CORPUSCULAR HEMOGLOBIN 30.2 pg (27.0-33.4); MEAN CORPUSCULAR HGB CONC 33.6 g/dL (32.0-36.0); MEAN CORPUSCULAR VOLUME 90 fl (80-97); PLATELET COUNT 289 10^3/uL (150-450); RED BLOOD COUNT 4.11 10^6/uL (3.72-5.28); RED CELL DISTRIBUTION WIDTH 16.1 % (11.5-14.0)
[2018-08-28 16:12] LABS: ANION GAP 13 (5-19); BLOOD UREA NITROGEN 6 mg/dL (7-20); CALCIUM 9.4 mg/dL (8.4-10.2); CARBON DIOXIDE 28 mmol/L (22-30); CHLORIDE 96 mmol/L (98-107); GLUCOSE 254 mg/dL (75-110); POTASSIUM 4.3 mmol/L (3.6-5.0); SODIUM 136.9 mmol/L (137-145)
[2018-08-28] MEDS: ONDANSETRON 4 MG TAB.RAPDIS PO PRN (17:15)
[2018-08-29] MEDS: LEVOTHYROXINE SODIUM 0.05 MG TABLET PO SCH (06:18)
[2018-08-29] MEDS: LANSOPRAZOLE 30 MG TAB.RAP.DR PO SCH (08:09)
--- NOTE | 2018-08-29 08:19 | PDOC PROGRESS REPORT ---
Subjective Progress Note for:: 08/29/18 Subjective:: Had long discussion w/ pt and family, as noted prev pt really wants to go home but still does not feel he wants her home, so daughter Anny and family are talking today about alternative home options. Daughter and son really want her home but daughter does not live here in [place] and son lives with 2 other roommates and only has 1 room. So there are talking to see if they can work this out. Discussed with Grace from [facility], she feels pt can come home and that they can bring in more help if a family member can agree to house pt. Isabel was tearful this am b/c she really wants to go home Reason For Visit: ENCEPHALOPATHY Physical Exam Vital Signs: Temp Pulse Resp BP Pulse Ox 98.3 F 84 18 132/77 H 95 08/29/18 00:00 08/29/18 00:00 08/29/18 00:00 08/29/18 00:00 08/29/18 00:00 Intake & Output 08/28/18 08/29/18 08/30/18 06:59 06:59 06:59 Intake Total 862 625 Balance 862 625 Weight 72.4 kg General appearance: PRESENT: no acute distress, well-developed, well-nourished Head exam: PRESENT: atraumatic, normocephalic Eye exam: PRESENT: conjunctiva pink, EOMI, PERRLA. ABSENT: scleral icterus Ear exam: PRESENT: normal external ear exam Mouth exam: PRESENT: moist, tongue midline Neck exam: ABSENT: carotid bruit, JVD, lymphadenopathy, thyromegaly Respiratory exam: PRESENT: clear to auscultation kain. ABSENT: rales, rhonchi, wheezes Cardiovascular exam: PRESENT: RRR. ABSENT: diastolic murmur, rubs, systolic murmur Pulses: PRESENT: normal dorsalis pedis pul Vascular exam: PRESENT: normal capillary refill GI/Abdominal exam: PRESENT: normal bowel sounds, soft. ABSENT: distended, guarding, mass, organolmegaly, rebound, tenderness Rectal exam: PRESENT: deferred Extremities exam: PRESENT: full ROM. ABSENT: calf tenderness, clubbing, pedal edema Neurological exam: PRESENT: alert, awake, oriented to person, oriented to place , oriented to time, oriented to situation, CN II-XII grossly intact. ABSENT: motor sensory deficit Psychiatric exam: PRESENT: appropriate affect, normal mood. ABSENT: homicidal ideation, suicidal ideation Skin exam: PRESENT: dry, intact, warm. ABSENT: cyanosis, rash Results Laboratory Results: 08/28/18 15:38 08/28/18 15:38 08/28/18 08/28/18 15:38 15:38 WBC 17.0 H RBC 4.11 Hgb 12.4 Hct 36.9 MCV 90 MCH 30.2 MCHC 33.6 RDW 16.1 H Plt Count 289 Sodium 136.9 L Potassium 4.3 Chloride 96 L Carbon Dioxide 28 Anion Gap 13 BUN 6 L Creatinine 0.65 Est GFR ( Amer) > 60 Est GFR (Non-Af Amer) > 60 Glucose 254 H Calcium 9.4 08/26/18 13:32 Bronchial Washings Fungal Smear - Final 08/26/18 13:32 Bronchial Washings Fungal Smear - Final 08/26/18 13:32 Bronchial Washings AFB Smear Concentration - Final 08/26/18 13:32 Bronchial Washings Acid Fast Bacilli Smear - Final Impressions: Head CT 08/22/18 15:00 IMPRESSION: No significant interval change as compared to the previous studies. The previously described sellar and suprasellar mass is again identified. No other significant intracranial abnormalities were identified. Other findings as noted above. EVIDENCE OF ACUTE STROKE: NO. Chest X-Ray 08/26/18 13:20 IMPRESSION: 1. Status post lung biopsy. Right lower lung patchy diffuse airspace disease may represent contusion/ hemorrhage related to lung biopsy. 2. No evidence of pneumothorax. Assessment & Plan - Diagnosis (1) Lung cancer metastatic to bone Is this a current diagnosis for this admission?: Yes Plan: No further rx, will cont to help family w/ hospice decision and will follow pt at home (2) Brain mass Is this a current diagnosis for this admission?: Yes Plan: No further rx planned (3) Pain, neoplasm-related Is this a current diagnosis for this admission?: Yes Plan: Cont current regimen - Time Time Spent with patient: 35 or more minutes - Inpatient Certification Based on my medical assessment, after consideration of the patient's comorbidities, presenting symptoms, or acuity I expect that the services needed warrant INPATIENT care.: Yes I certify that my determination is in accordance with my understanding of Medicare's requirements for reasonable and necessary INPATIENT services [42 CFR 412.3e].: Yes Medical Necessity: Risk of Complication if Not Cared For in Hospital
[2018-08-29] MEDS: AMLODIPINE BESYLATE 5 MG TABLET PO SCH (09:30)
[2018-08-29] MEDS: CITALOPRAM HYDROBROMIDE 20 MG TABLET PO SCH (09:31)
[2018-08-29] MEDS: DEXAMETHASONE 4 MG TABLET PO SCH ×2 (09:31→17:16)
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
--- NOTE | 2018-08-29 14:28 | PDOC PROGRESS REPORT ---
Subjective Progress Note for:: 08/29/18 Subjective:: Patient without complaint Reason For Visit: ENCEPHALOPATHY Physical Exam Vital Signs: Temp Pulse Resp BP Pulse Ox 97.8 F 91 16 135/78 H 96 08/29/18 11:28 08/29/18 11:28 08/29/18 11:28 08/29/18 11:28 08/29/18 11:28 Intake & Output 08/28/18 08/29/18 08/30/18 06:59 06:59 06:59 Intake Total 862 625 Balance 862 625 Weight 72.4 kg General appearance: PRESENT: no acute distress, cooperative, disheveled Head exam: PRESENT: atraumatic, normocephalic Eye exam: PRESENT: conjunctiva pale, EOMI. ABSENT: nystagmus, scleral icterus Mouth exam: PRESENT: dry mucosa, neck supple, tongue midline Neck exam: ABSENT: carotid bruit, JVD, lymphadenopathy, thyromegaly, tracheal deviation, tracheostomy Respiratory exam: PRESENT: decreased breath sounds, prolonged expiratory phas, rhonchi, unlabored. ABSENT: retraction, stridor, tachypnea Cardiovascular exam: PRESENT: RRR, +S1, +S2 Pulses: PRESENT: normal radial pulses GI/Abdominal exam: PRESENT: normal bowel sounds, soft. ABSENT: tenderness Extremities exam: ABSENT: calf tenderness, clubbing, joint swelling Musculoskeletal exam: ABSENT: deformity, dislocation Neurological exam: PRESENT: alert, awake Psychiatric exam: PRESENT: normal mood Skin exam: PRESENT: dry, warm Results Laboratory Results: 08/28/18 15:38 08/28/18 15:38 08/28/18 08/28/18 15:38 15:38 WBC 17.0 H RBC 4.11 Hgb 12.4 Hct 36.9 MCV 90 MCH 30.2 MCHC 33.6 RDW 16.1 H Plt Count 289 Sodium 136.9 L Potassium 4.3 Chloride 96 L Carbon Dioxide 28 Anion Gap 13 BUN 6 L Creatinine 0.65 Est GFR ( Amer) > 60 Est GFR (Non-Af Amer) > 60 Glucose 254 H Calcium 9.4 08/26/18 13:32 Bronchial Washings Gram Stain - Final 08/26/18 13:32 Bronchial Washings Bronchial Washings Culture - Final NORMAL JUNAID 08/26/18 13:32 Bronchial Washings Fungal Smear - Final 08/26/18 13:32 Bronchial Washings Fungal Smear - Final 08/26/18 13:32 Bronchial Washings AFB Smear Concentration - Final 08/26/18 13:32 Bronchial Washings Acid Fast Bacilli Smear - Final Impressions: Head CT 08/22/18 15:00 IMPRESSION: No significant interval change as compared to the previous studies. The previously described sellar and suprasellar mass is again identified. No other significant intracranial abnormalities were identified. Other findings as noted above. EVIDENCE OF ACUTE STROKE: NO. Chest X-Ray 08/26/18 13:20 IMPRESSION: 1. Status post lung biopsy. Right lower lung patchy diffuse airspace disease may represent contusion/ hemorrhage related to lung biopsy. 2. No evidence of pneumothorax. Assessment & Plan - Diagnosis (1) Hypertension Is this a current diagnosis for this admission?: Yes (2) Lung cancer metastatic to bone Is this a current diagnosis for this admission?: Yes Plan: pathology report;Small cell lung cancer
[2018-08-29 15:46] LABS: HEMATOCRIT 36.7 % (36.0-47.0); HEMOGLOBIN 12.6 g/dL (12.0-15.5); MEAN CORPUSCULAR HEMOGLOBIN 30.5 pg (27.0-33.4); MEAN CORPUSCULAR HGB CONC 34.2 g/dL (32.0-36.0); MEAN CORPUSCULAR VOLUME 89 fl (80-97); PLATELET COUNT 296 10^3/uL (150-450); RED BLOOD COUNT 4.12 10^6/uL (3.72-5.28); RED CELL DISTRIBUTION WIDTH 16.1 % (11.5-14.0); WHITE BLOOD COUNT 17.1 10^3/uL (4.0-10.5)
[2018-08-29 16:04] LABS: ANION GAP 10 (5-19); BLOOD UREA NITROGEN 8 mg/dL (7-20); CALCIUM 9.4 mg/dL (8.4-10.2); CARBON DIOXIDE 29 mmol/L (22-30); CHLORIDE 99 mmol/L (98-107); GLUCOSE 147 mg/dL (75-110); POTASSIUM 4.2 mmol/L (3.6-5.0); SODIUM 138.2 mmol/L (137-145)
[2018-08-29] MEDS: ONDANSETRON 4 MG TAB.RAPDIS PO PRN (19:40)
[2018-08-30] MEDS: LEVOTHYROXINE SODIUM 0.05 MG TABLET PO SCH (06:09)
[2018-08-30] MEDS: LANSOPRAZOLE 30 MG TAB.RAP.DR PO SCH (07:30)
--- NOTE | 2018-08-30 08:43 | PDOC PROGRESS REPORT ---
Subjective Progress Note for:: 08/30/18 Subjective:: D/w pt and reviewed DC planning note, looks like family now on board with hospice at home, so likely d/c today Reason For Visit: ENCEPHALOPATHY Physical Exam Vital Signs: Temp Pulse Resp BP Pulse Ox 97.7 F 81 20 131/76 H 99 08/30/18 07:32 08/30/18 07:32 08/30/18 07:32 08/30/18 07:32 08/30/18 07:32 Intake & Output 08/29/18 08/30/18 08/31/18 06:59 06:59 06:59 Intake Total 625 1573 Balance 625 1573 Weight 72.4 kg 70.5 kg General appearance: PRESENT: no acute distress, well-developed, well-nourished Head exam: PRESENT: atraumatic, normocephalic Eye exam: PRESENT: conjunctiva pink, EOMI, PERRLA. ABSENT: scleral icterus Ear exam: PRESENT: normal external ear exam Mouth exam: PRESENT: moist, tongue midline Neck exam: ABSENT: carotid bruit, JVD, lymphadenopathy, thyromegaly Respiratory exam: PRESENT: clear to auscultation kain. ABSENT: rales, rhonchi, wheezes Cardiovascular exam: PRESENT: RRR. ABSENT: diastolic murmur, rubs, systolic murmur Pulses: PRESENT: normal dorsalis pedis pul Vascular exam: PRESENT: normal capillary refill GI/Abdominal exam: PRESENT: normal bowel sounds, soft. ABSENT: distended, guarding, mass, organolmegaly, rebound, tenderness Rectal exam: PRESENT: deferred Extremities exam: PRESENT: full ROM. ABSENT: calf tenderness, clubbing, pedal edema Neurological exam: PRESENT: alert, awake, oriented to person, oriented to place , oriented to time, oriented to situation, CN II-XII grossly intact. ABSENT: motor sensory deficit Psychiatric exam: PRESENT: appropriate affect, normal mood. ABSENT: homicidal ideation, suicidal ideation Skin exam: PRESENT: dry, intact, warm. ABSENT: cyanosis, rash Results Laboratory Results: 08/29/18 15:35 08/29/18 15:35 08/29/18 08/29/18 15:35 15:35 WBC 17.1 H RBC 4.12 Hgb 12.6 Hct 36.7 MCV 89 MCH 30.5 MCHC 34.2 RDW 16.1 H Plt Count 296 Sodium 138.2 Potassium 4.2 Chloride 99 Carbon Dioxide 29 Anion Gap 10 BUN 8 Creatinine 0.63 Est GFR ( Amer) > 60 Est GFR (Non-Af Amer) > 60 Glucose 147 H Calcium 9.4 08/26/18 13:32 Bronchial Washings Gram Stain - Final 08/26/18 13:32 Bronchial Washings Bronchial Washings Culture - Final NORMAL JUNAID Impressions: Head CT 08/22/18 15:00 IMPRESSION: No significant interval change as compared to the previous studies. The previously described sellar and suprasellar mass is again identified. No other significant intracranial abnormalities were identified. Other findings as noted above. EVIDENCE OF ACUTE STROKE: NO. Chest X-Ray 08/26/18 13:20 IMPRESSION: 1. Status post lung biopsy. Right lower lung patchy diffuse airspace disease may represent contusion/ hemorrhage related to lung biopsy. 2. No evidence of pneumothorax. Assessment & Plan - Diagnosis (1) Lung cancer metastatic to bone Is this a current diagnosis for this admission?: Yes Plan: home today w/ hospice (2) Brain mass Is this a current diagnosis for this admission?: Yes Plan: home today w/ hospice (3) Pain, neoplasm-related Is this a current diagnosis for this admission?: Yes Plan: pain controlled - Time Time Spent with patient: 35 or more minutes Disposition: spent >35 m in discussion w/ pt and family today
[2018-08-30] MEDS: CITALOPRAM HYDROBROMIDE 20 MG TABLET PO SCH (10:05)
[2018-08-30] MEDS: AMLODIPINE BESYLATE 5 MG TABLET PO SCH (10:06)
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
[2018-08-30] MEDS: DEXAMETHASONE 4 MG TABLET PO SCH (10:07)
[2018-08-30 12:39] VITALS: BP 132/77
[2018-08-30] MEDS: ONDANSETRON 4 MG TAB.RAPDIS PO PRN (13:01)
== END 2018-08-30 13:25 | disposition hospice, home (50) | DRG 55 ==
LOC: ER 14:40 → EH 08-23 09:20 → 4S 08-23 18:16
PROVIDERS: ADMIT Family Medicine; ATTEND Family Medicine
PROC: 0B9F8ZX Drainage of Right Lower Lung Lobe, Via Natural or Artificial Opening Endoscopic, Diagnostic (ICD-10-PCS; principal; 2018-08-26 13:00)
DX: C79.31 Secondary malignant neoplasm of brain (principal); C34.31 Malignant neoplasm of lower lobe, right bronchus or lung; C79.51 Secondary malignant neoplasm of bone; C79.72 Secondary malignant neoplasm of left adrenal gland; C79.71 Secondary malignant neoplasm of right adrenal gland; F02.81 Dementia in other diseases classified elsewhere, unspecified severity, with behavioral disturbance; G89.3 Neoplasm related pain (acute) (chronic); Z66 Do not resuscitate; I10 Essential (primary) hypertension; J44.9 Chronic obstructive pulmonary disease, unspecified; E03.9 Hypothyroidism, unspecified; K21.9 Gastro-esophageal reflux disease without esophagitis; F41.9 Anxiety disorder, unspecified; F17.210 Nicotine dependence, cigarettes, uncomplicated; F91.9 Conduct disorder, unspecified; Z23 Encounter for immunization; Z79.899 Other long term (current) drug therapy; Z87.891 Personal history of nicotine dependence; Z88.0 Allergy status to penicillin; Z83.3 Family history of diabetes mellitus; Z82.49 Family history of ischemic heart disease and other diseases of the circulatory system
CPT/HCPCS: 00520; 31628; 36415; 70450; 71045; 80048; 80053; 81001; 82550; 84443; 84484; 85025; 85027; 85610; 85730; 87015; 87070; 87101; 87116; 87205; 87206; 88104; 88341; 88342; 89050; 93005; 93010; 96372; 99285; G8978-GP; G8979-GP; J0171; J0330; J1630; J1650; J2250; J2405; J2550; J2704; J3010; J3490; S0119